=== PATIENT | male | born 1940 | race Caucasian/White ===

== ENCOUNTER 2021-09-24 07:22 | Outpatient (REF) | payer OTHER, SELFPAY ==
[2021-09-24 08:54] LABS: PSA,Total (Free>4and<10) 4.17 ng/mL (0.00-4.00)
[2021-09-27 11:21] LABS: Free Prostate Spec Ag 1.6 ng/mL; Percent Free Prostate Spec Ag 35 % (calc) (>25); Prostate Specific Ag Total 4.6 ng/mL (< OR = 4.0)
== END 2021-09-24 07:23 | disposition home or self-care (01) ==
LOC: HO.LAB 07:22
PROVIDERS: PCP Internal Medicine Geriatric Medicine; Visit Provider Urology
DX: Z12.5 Encounter for screening for malignant neoplasm of prostate (principal); R97.20 Elevated prostate specific antigen [PSA]
CPT/HCPCS: 36415; 84153; 84154

== ENCOUNTER → 2021-10-01 10:33 | Outpatient (BNVA) | payer OTHER, SELFPAY | PROVIDERS: PCP Internal Medicine Geriatric Medicine; Visit Provider Urology | DX: N40.1 Benign prostatic hyperplasia with lower urinary tract symptoms (principal); N13.8 Other obstructive and reflux uropathy; N21.0 Calculus in bladder; R97.20 Elevated prostate specific antigen [PSA] | CPT/HCPCS: 99212 ==

== ENCOUNTER → 2022-02-16 11:42 | Outpatient (BNVA) | payer OTHER, SELFPAY | PROVIDERS: PCP Internal Medicine Geriatric Medicine; Referring Provider Nurse Practitioner Family; Visit Provider Internal Medicine | DX: I71.4 Abdominal aortic aneurysm, without rupture (principal) | CPT/HCPCS: 93005; 99202 ==

== ENCOUNTER 2022-03-25 07:21 | Outpatient (REF) | payer OTHER, SELFPAY ==
[2022-03-25 09:13] LABS: PSA,Total (Free>4and<10) 4.51 ng/mL (0.00-4.00)
[2022-03-28 09:32] LABS: Free Prostate Spec Ag 2.1 ng/mL; Percent Free Prostate Spec Ag 40 % (calc) (>25); Prostate Specific Ag Total 5.3 ng/mL (< OR = 4.0)
== END 2022-03-25 07:22 | disposition home or self-care (01) ==
LOC: HO.LAB 07:21
PROVIDERS: PCP Internal Medicine Geriatric Medicine; Visit Provider Urology
DX: Z12.5 Encounter for screening for malignant neoplasm of prostate (principal); N40.1 Benign prostatic hyperplasia with lower urinary tract symptoms; N13.8 Other obstructive and reflux uropathy; R97.20 Elevated prostate specific antigen [PSA]
CPT/HCPCS: 36415; 84153; 84154

== ENCOUNTER → 2022-04-01 08:51 | Outpatient (BNVA) | payer OTHER, SELFPAY | PROVIDERS: Visit Provider Urology | DX: R97.20 Elevated prostate specific antigen [PSA] (principal); N40.1 Benign prostatic hyperplasia with lower urinary tract symptoms; N13.8 Other obstructive and reflux uropathy; N21.0 Calculus in bladder | CPT/HCPCS: Q3014 ==

== ENCOUNTER 2022-05-26 07:34 | Outpatient (REF) | payer OTHER, SELFPAY ==
--- NOTE | ~2022-05-26 | US_ITS ---
EXAMINATION: US RETROPERITONEAL LIMITED (AORTA) CLINICAL INFORMATION: Abdominal aortic aneurysm, without rupture. COMPARISON: None TECHNIQUE: Sinclair-scale, color Doppler and spectral Doppler evaluation of the abdominal aorta. FINDINGS: There is atherosclerotic disease. The measurements of the aorta in maximum AP and transverse dimensions respectively are as follows: Proximal: 2.7 x 3.4 cm. Mid: 2.8 x 3.2 cm. Distal: 3.3 x 3.5 cm. PSV: 37.0 cm/s. The measurements of the common iliac arteries in maximum AP and TRV dimensions are as follows: Right Common Iliac Artery: 1.3 x 1.3 cm. Left Common Iliac Artery: 1.2 x 1.2 cm. US/US abdominal aortic aneurysm IMPRESSION: Infrarenal abdominal aortic aneurysm measuring 3.5 cm.
--- NOTE | 2022-05-26 08:34 | CA_ITS ---
Transthoracic Echocardiogram Patient (Last, First, Middle): Hal Archer, Gender: Male Date of : 1940 Age: 81 Procedure Date: 05/26/2022 Procedure Type: Transthoracic Echocardiogram Location: OP Height: 172.72 cm Weight: 68.95 kg BSA: 1.82 m2 Heart Rate: 71 bpm BP: 135 / 75 mmHg Anthropometrist: KRISTA Tee MD: José Huynh MD Signal Worker Helper: Anshul Proctor MD Symptoms: I42.9 - Cardiomyopathy, unspecified Study Quality: Poor/Contrast ECG Rhythm: Sinus Conclusions: - 1. Technically limited study despite use of contrast agent 2. Mildly reduced LV systolic function with LVEF of 45-50% 3. Limited visualization of cardiac valves with cardiac valvular Doppler within normal limits Findings Procedure Information Contrast agent, definity, is being given per protocol without apparent complications. Left Ventricle Normal left ventricular cavity size. There is normal left ventricular wall thickness. The left ventricular systolic function is mildly decreased. The visually estimated ejection fraction is between 45-50%. Spectral Doppler is indicative of an impaired relaxation filling pattern. E/E prime ratio is between 8 and 15 consistent with indeterminate filling pressures. Right Ventricle Normal right ventricular cavity size. There is mild to moderately decreased right ventricular systolic function. Atria The left atrium is normal in size. Interatrial shunt cannot be excluded. The right atrium was not well visualized. Aortic Valve The aortic valve was not well visualized. There is no aortic valve stenosis. There is no aortic valve regurgitation. Mitral Valve Likely normal mitral valve structure and function. There is trace mitral valve regurgitation. There is no mitral valve stenosis. Pulmonic Valve The pulmonic valve was not well visualized. Tricuspid Valve The tricuspid valve was not well visualized. Tricuspid regurgitation envelope is inadequate for calculation of right ventricular systolic pressure. Great Vessels The aorta was not well visualized. The pulmonary artery was not well visualized. Venous The inferior vena cava was not well visualized. Pericardium/Pleural The pericardium was not well visualized. Prior Study Comparison No prior study available for comparison. Measurements 2D Linear Measurements IVSd: 0.80 0.6-0.9/0.6-1.0 cm LVIDd: 3.91 3.9-5.3/4.2-5.9 cm LVIDd Index: 2.15 2.4-3.2/2.2-3.1 cm/m2 LVIDs: 2.53 2.0-3.6 cm LVPWd: 0.90 0.7-1.1 cm LA Diam: 3.50 2.7-3.8/3.0-4.0 cm LAIDs Index: 1.92 1.5-2.3 cm/m2 LV Mass: 121.26 67-162/88-224 g LV Mass Index: 66.62 43-95/49-115 g/m2 LVOT Diam: 2.10 3.0+(-)1.3 cm 2D Systolic Function EF 4C: 39.90 >55% EF 2C: 53.70 >55% EF BiP: 46.10 >55% Mitral Valve MV Pk E: 0.62 MV PK A: 0.90 MV Decel Time: 322.00 E/A: 0.70 E'Lateral: 7.23 E'Medial: 6.01 E/E' Med: 10.30 E/E' Lat: 8.60 PHT: 94.00 MVA PHT: 2.34 Decel Lea: 1.93 Aortic Valve AoV Pk Tushar: 1.44 AoV Mn Tushar: 1.04 AoV VTI: 0.32 AoV Pk Grad: 8.00 Aov Mn Grad: 5.00 CORINA Cont.VTI: 1.53 LVOT LVOT Pk Tushar: 0.60 LVOT Mn Tushar: 0.44 LVOT VTI: 0.14 LVOT Pk Grad: 1.00 LVOT Mn Grad: 1.00 LVOT Diam: 2.10 LVOT Area: 3.46 Diastolic Function MV Pk E: 0.62 MV Pk A: 0.90 E/A: 0.70 E'Medial: 6.01 E/E' Med: 10.30 E' Laterial: 7.23 E/E' Lat: 8.60 Right Ventricle TAPSE (mm): 14.30 TVS' Tushar: 9.02 Tricuspid Valve TR Pk Tushar: 2.01 TR Pk Grad: 16.00 Great Vessels Aorta Sinus of Valsalva: 3.80 2.0-3.5 cm Ao Asc: 3.60 2.1-3.4 cm Pulmonary Valve PV Pk Tushar: 0.97 Peak PV Grad: 4.00 Updated in Other Vendor System with Status of Final Anshul Proctor MD electronically signed on 05/27/2022 2:46:22 PM with status of Final
== END 2022-05-26 07:35 | disposition home or self-care (01) ==
LOC: HO.US 07:34
PROVIDERS: Visit Provider Internal Medicine
DX: I71.40 Abdominal aortic aneurysm, without rupture, unspecified (principal)
CPT/HCPCS: 76706; 93306; Q9957

== ENCOUNTER → 2022-06-08 09:58 | Outpatient (BNVA) | payer OTHER, SELFPAY | PROVIDERS: PCP Internal Medicine Geriatric Medicine; Visit Provider Internal Medicine | DX: I74.10 Embolism and thrombosis of unspecified parts of aorta (principal); I42.9 Cardiomyopathy, unspecified | CPT/HCPCS: 99212 ==

== ENCOUNTER 2022-06-28 07:24 | Outpatient (REF) | payer OTHER, SELFPAY ==
[2022-06-28 07:29] LABS: MANUAL DIFF FLAG NO
[2022-06-28 08:04] LABS: Basophils Percent Auto 0.6 % (0-2); Eosinophils Absolute Auto 0.1 X10*3/uL (0.0-0.4); Eosinophils Percent Auto 1.4 % (0-4); Hematocrit 48.6 % (42.0-52.0); Hemoglobin 16.5 g/dl (14.0-18.0); Imm Gran Abs Auto 0.03 X10*3/uL (0.00-0.03); Imm Gran Pct Auto 0.4 % (0.0-0.4); Lymphocytes Absolute Auto 1.8 X10*3/uL (1.2-4.9); Lymphocytes Percent Auto 25.2 % (20-40); Mean Corpuscular Hemoglobin 28.2 pg (27.0-33.0); Mean Corpuscular Volume 83.1 fL (80.0-98.0); Mean Platelet Volume 10.3 fL (9.4-12.4); Monocytes Absolute Auto 0.6 X10*3/uL (0.1-1.2); Monocytes Percent Auto 8.5 % (2-11); Neutrophils Absolute Auto 4.6 x10*3/uL (2.0-8.3); Neutrophils Percent Auto 63.9 % (45-73); Platelet Count 185 X10*3/uL (160-400); Red Blood Count 5.85 X10*6/uL (4.60-5.80); Red Cell Distribution Width 12.7 % (11.0-16.0); White Blood Count 7.1 X10*3/uL (4.8-10.8)
[2022-06-28 08:42] LABS: Alanine Aminotransferase 20 U/L (0-40); Albumin Level 4.4 g/dL (3.5-5.0); Alkaline Phosphatase 65 U/L (39-117); Anion Gap 14 (12-20); Aspartate Amino Transferase 18 U/L (5-37); Blood Urea Nitrogen 16 mg/dL (9-16); Calcium 9.5 mg/dL (8.4-10.2); Carbon Dioxide 29 mmol/L (22-29); Chloride 101 mmol/L (96-108); Cholesterol 190 mg/dL; Estimated Glomerular Filt Rate > 60; Glucose Random 150 mg/dL (60-115); HDL Cholesterol 40 mg/dL; LDL Cholesterol Calculated 132 mg/dl; Potassium 4.2 mmol/L (3.3-5.1); Sodium 140 mmol/L (135-145); Triglycerides 94 mg/dL
== END 2022-06-28 07:25 | disposition home or self-care (01) ==
LOC: HO.LAB 07:24
PROVIDERS: PCP Internal Medicine Geriatric Medicine; Visit Provider Internal Medicine Geriatric Medicine
DX: I10 Essential (primary) hypertension (principal); Z13.220 Encounter for screening for lipoid disorders
CPT/HCPCS: 36415; 80053; 80061; 85025

== ENCOUNTER 2022-11-02 07:11 | Outpatient (REF) | payer OTHER, SELFPAY ==
[2022-11-02 07:52] LABS: Estimated Average Glucose 143 mg/dL; Hemoglobin A1c % 6.6 %
== END 2022-11-02 07:12 | disposition home or self-care (01) ==
LOC: HO.LAB 07:11
PROVIDERS: PCP Internal Medicine Geriatric Medicine; Visit Provider Internal Medicine Geriatric Medicine
DX: R73.9 Hyperglycemia, unspecified (principal)
CPT/HCPCS: 36415; 83036

== ENCOUNTER 2023-03-24 08:00 | Outpatient (REF) | payer OTHER, SELFPAY ==
[2023-03-24 10:22] LABS: PSA,Total (Free>4and<10) 6.05 ng/mL (0.00-4.00)
[2023-03-27 10:58] LABS: Free Prostate Spec Ag 1.4 ng/mL; Percent Free Prostate Spec Ag 22 % (calc) (>25); Prostate Specific Ag Total 6.3 ng/mL (< OR = 4.0)
== END 2023-03-24 08:01 | disposition home or self-care (01) ==
LOC: HO.LAB 08:00
PROVIDERS: Visit Provider Urology
DX: Z12.5 Encounter for screening for malignant neoplasm of prostate (principal); R97.20 Elevated prostate specific antigen [PSA]
CPT/HCPCS: 36415; 84153; 84154

== ENCOUNTER 2023-03-31 10:07 | Outpatient (AMB) | payer OTHER, SELFPAY ==
--- NOTE | 2023-03-31 11:11 | MHC.OFFVIS ---
Intake Intake Visit Reasons: 1Y PSA(set) Intake Note: Patient is Present for Follow Up Urology Medication: Antibiotic Allergies: Cipro, Penicillin Blood Thinners: None Pharmacy: [facility] PVR: 80ml Allergies ciprofloxacin [CIPROFLOXACIN] Allergy (Intermediate, Verified 03/31/23 11:13) ITCHING Penicillins [PENICILLINS] Allergy (Unknown, Verified 03/31/23 11:13) UNKNOWN From PERCOCET Adverse Reaction (Intermediate, Uncoded 03/31/23 11:13) AGITATION/VOMITING HPI HPI Comments History of Present Illness Details Hal is a pleasant male. He is a patient of Dr Dow. He is seen for the following urologic conditions. - Bladder stone - lower urinary tract symptoms Discussed with daughter Slight elevation in PSA Free% remains high Continue to follow Lower Urinary Tract Symptoms:? Prior prostate procedures Prior elevated and variable PSA Current visit is for?further evaluation of, lower urinary tract symptoms, predominate obstructive symptoms.? Current treatment includes?medication, 5-AR.? Prior treatments include?2009 , TURP ?03/13 laser procedure for bladder stones - BPH tissue ?06/15 UTI ?11/13 Bladder stone removed.? Prostate Symptom Score?06/16 , Mild (0-8), Bother 2.? Symptoms include?incomplete emptying, weak stream, nocturia (>2), and are improving ?06/16 , incomplete emptying, nocturia (>2), and are stable.? Results from testing include? cystoscopy ? 09/13 TURP defect from procedure 2009, bladder stones recurrent ? renal/bladder us ? 06/15 6 mm left kidney stone. Asymptomatic. 90 mg prostate per management. PVR 125. 06/16 Bilateral small renal stones. Enlarged prosatte capsule ? Prior Prostate Score?moderate.? PSA?07/15 - 6.2 free 30% ?01/12 6.6 30%, 06/16 3.9, 12/14 4.7, 07/18 PSA 7.4,?01/15 4.8, 09/17 4.2 35%, 03/19 4.5 40%, 03/20 6.3 F22% ? Prostate volume?30-50gm.? Testing at next visit will include?Prostate Symptom Score, bladder scan.? Treatment plan?12 months PSA PFSH Medical History AAA (abdominal aortic aneurysm) without rupture Elevated prostate specific antigen [PSA] Surgical History No pertinent past surgical history Family History Father No problems noted. Mother No problems noted. Social History Patient Tobacco Use Status: Never used Tobacco Review of Systems Const Denies chills and Denies fever(s) Card Reports no additional complaints and Denies syncope Resp Denies cough GI Denies abdominal pain and Denies heartburn Reports as per HPI and Denies change in libido Neuro Denies syncope Psych Denies change in libido Endo Denies change in libido Physical Exam Const General: cooperative, healthy appearing, comfortable and no acute distress Orientation/consciousness: patient oriented x3 HEENT Face and sinus: Yes normal facial exam Mouth: moist mucous membranes Neck Neck: Yes normal visual inspection, Yes full ROM and Yes trachea midline Chest Chest palpation & inspection: normal inspection of the chest Resp Effort & Inspection: normal respiratory effort, able to speak in complete sentences and no respiratory distress GI Inspection: Yes normal to inspection Back/Spine/Pelvis Cervical Spine: normal cervical lordosis Thoracic/Lumbar Spine: thoracic and lumbar spine normal to inspection Skin General skin exam: no rashes or lesions noted Neuro General: patient oriented x3, gait normal, tone normal and moves all extremities Extrem General: Yes normal to inspection and Yes capillary refill normal Office Procedures Post Void Residual Post Residual Void Post Void Residual (PVR): 80 [id number] Void Residual by ultrasound Results AMB Urinalysis, Automated UA Leukoctes 0 Darrian/uL Last Edit by EARNEST Byrnes on 03/31/23 11:22 UA Nitrite Negative Last Edit by Stefanie Chavez, A on 03/31/23 11:22 UA Urobilinogen 0.2 mg/dL Last Edit by Stefanie Chavez, A on 03/31/23 11:22 UA Protein 30 mg/dL Last Edit by Stefanie Chavez, A on 03/31/23 11:22 UA pH 5.0 Last Edit by Stefanie Chavez, A on 03/31/23 11:22 UA Blood 0 Bladimir/uL Last Edit by Stefanie Chavez, RMA on 03/31/23 11:22 UA Specific [place] 1.025 Last Edit by Stefanie Chavez, A on 03/31/23 11:22 UA Ketone Negative Last Edit by Stefanie Chavez, A on 03/31/23 11:22 UA Bilirubin 0 mg/dL Last Edit by Stefanie Chavez, A on 03/31/23 11:22 UA Glucose 0 mg/dL Last Edit by Stefanie Chavez, A on 03/31/23 11:22 Results Reviewed Results Reviewed: Laboratory Last Values Urine pH (Auto) 5.0 03/31/23 11:14 Specific [place] (Auto) 1.025 03/31/23 11:14 Urine Protein (Auto) 30 mg/dL 03/31/23 11:14 Glucose (UA)(Auto) 0 mg/dL 03/31/23 11:14 Urine Ketones (Auto) Negative 03/31/23 11:14 Urine Blood (Auto) 0 Bladimir/uL 03/31/23 11:14 Urine Nitrite (Auto) Negative 03/31/23 11:14 Urine Bilirubin (Auto) 0 mg/dL 03/31/23 11:14 Urine Urobilinogen (Auto) 0.2 mg/dL 03/31/23 11:14 Leukocyte Esterase (Auto) 0 Darrian/uL 03/31/23 11:14 Assessment & Plan Assessment & Plan (1) Bladder stones: Code(s): N21.0 - Calculus in bladder (2) BPH w urinary obs/LUTS: Code(s): N40.1 - Benign prostatic hyperplasia with lower urinary tract symptoms; N13.8 - Other obstructive and reflux uropathy (3) Elevated prostate specific antigen [PSA]: Code(s): R97.20 - Elevated prostate specific antigen [PSA] Plan Twelve month follow-up PSA Orders: Orders AMB Post Void Residual by ultrasound 03/31/23 N40.1 - Benign prostatic hyperplasia with lower urinary tract symptoms, N13.8 - Other obstructive and reflux uropathy PSA,Total (Free>4and<10) 364 Days R97.20 - Elevated prostate specific antigen [PSA] AMB Urinalysis Automated 03/31/23 Z13.9 - Encounter for screening, unspecified Patient Instructions: Imaging studies, laboratory and physical exam results were discussed and reviewed in detail. No major barriers to patient understanding were identified. An opportunity to ask questions regarding the treatment plan was provided. All questions were answered. The patient expressed understanding and agreement with the above treatment plan. The patient is aware they should contact our office by phone for worsening of their current condition or the appearance of new urologic symptoms. Compliance is encouraged with any medications and followup testing that is ordered. It is a privilege to participate in the urologic care of your patient. If you have any questions or concerns regarding treatment for the above conditions, or other urologic issues, please do not hesitate to contact me. The office telephone contact is [phone]. This note is constructed using voice recognition software. While every effort has been made to ensure accuracy veterinary hospital shift lead errors may have been included. Yours sincerely, Dr Blaze Marie MD, [facility] - Urology Providers of Expert, Compassionate Care for the Genitourinary System Coding Level of Care Code Est Pt Level 3 (63475) Diagnoses Bladder stones N21.0 BPH w urinary obs/LUTS N40.1; N13.8 Elevated prostate specific antigen [PSA] R97.20 CPT Codes Post Residual Void - PVR CPT Code: 09891-[id number] Void Residual by ultrasound ([id number])
== END 2023-03-31 11:55 | disposition home or self-care (01) ==
PROVIDERS: Visit Provider Urology
DX: N21.0 Calculus in bladder (principal); N40.1 Benign prostatic hyperplasia with lower urinary tract symptoms; N13.8 Other obstructive and reflux uropathy; R97.20 Elevated prostate specific antigen [PSA]
CPT/HCPCS: 99213

== ENCOUNTER → 2023-03-31 10:07 | Outpatient (BNVA) | payer OTHER, SELFPAY | PROVIDERS: Visit Provider Urology | DX: N21.0 Calculus in bladder (principal); N40.1 Benign prostatic hyperplasia with lower urinary tract symptoms; N13.8 Other obstructive and reflux uropathy; R97.20 Elevated prostate specific antigen [PSA] | CPT/HCPCS: 51798; 81003; 99212 ==

== ENCOUNTER 2023-05-19 07:54 | Outpatient (REF) | payer OTHER, SELFPAY ==
--- NOTE | ~2023-05-19 | US_ITS ---
EXAMINATION: US RETROPERITONEAL LIMITED (AORTA) CLINICAL INFORMATION: Abdominal aortic aneurysm without rupture, unspecified. COMPARISON: Ultrasound aorta 05/26/2022. TECHNIQUE: Sinclair-scale, color Doppler and spectral Doppler evaluation of the abdominal aorta. FINDINGS: The measurements of the aorta in maximum AP and transverse dimensions respectively are as follows: Proximal: 2.2 x 2.6 cm, previously 2.7 x 3.4 cm. Mid: 2.2 x 2.2 cm, previously 2.8 x 2.2 cm. Distal: 3.3 x 3.1 cm, previously 3.3 x 3.5 cm. PSV: 30.0 cm/s. The measurements of the common iliac arteries in maximum AP and TRV dimensions are as follows: Right Common Iliac Artery: 1.8 x 1.7 cm, previously 1.3 x 1.3 cm. Left Common Iliac Artery: 1.7 x 1.9 cm, previously 1.2 x 1.2 cm. US/US abdominal aortic aneurysm IMPRESSION: 1. Stable infrarenal abdominal aortic aneurysm measuring up to 3.3 cm. Follow-up ultrasound recommended in 3 year interval. 2. Mildly aneurysmal bilateral iliac arteries, new from prior.
== END 2023-05-19 07:55 | disposition home or self-care (01) ==
LOC: HO.US 07:54
PROVIDERS: PCP Internal Medicine Geriatric Medicine; Visit Provider Internal Medicine
DX: I71.40 Abdominal aortic aneurysm, without rupture, unspecified (principal); I42.9 Cardiomyopathy, unspecified
CPT/HCPCS: 76706

== ENCOUNTER → 2023-08-17 09:17 | Outpatient (REF) | payer OTHER, SELFPAY ==
--- NOTE | 2023-08-17 09:24 | CA_ITS ---
Transthoracic Echocardiogram Patient (Last, First, Middle): Hal Archer, Gender: Male Date of : 1940 Age: 82 Procedure Date: 08/17/2023 Procedure Type: Transthoracic Echocardiogram Location: OP Height: 160.02 cm Weight: 73.48 kg BSA: 1.77 m2 Heart Rate: bpm BP: 118 / 76 mmHg Hris Specialist: SHAWN Referring MD: José Huynh MD Symptoms: I42.9 - Cardiomyopathy, unspecified Study Quality: Adequate ECG Rhythm: Sinus Conclusions: - The left ventricular systolic function is mildly decreased. The calculated ejection fraction is 49% by biplane method. - There is moderate calcification of the aortic valve. Findings Left Ventricle Normal left ventricular cavity size. The left ventricular systolic function is mildly decreased. The calculated ejection fraction is 49% by biplane method. There is mild global hypokinesis. Evidence suggests grade I (mild) diastolic dysfunction. There is mild septal asymmetric hypertrophy. Possible basal inferior wall hypokinesis. LV peak GLS -15.3%. Right Ventricle Normal right ventricular cavity size and systolic function. Atria Both atria are normal in size. Aortic Valve There is moderate calcification of the aortic valve. There is no aortic valve stenosis. There is no aortic valve regurgitation. Mitral Valve The mitral valve appears normal. There is trace mitral valve regurgitation. There is no mitral valve stenosis. Pulmonic Valve The pulmonic valve is likely normal. Tricuspid Valve There is trace tricuspid valve regurgitation. There is no evidence of pulmonary hypertension. Great Vessels The asc aorta is normal in size. Venous The inferior vena cava was not well visualized. Pericardium/Pleural There is no evidence of pericardial effusion. Prior Study Comparison No significant change compared to prior study dated: 05/26/2022. Measurements 2D Linear Measurements IVSd: 1.10 0.6-0.9/0.6-1.0 cm LVIDd: 4.41 3.9-5.3/4.2-5.9 cm LVIDd Index: 2.49 2.4-3.2/2.2-3.1 cm/m2 LVIDs: 3.18 2.0-3.6 cm LVPWd: 0.89 0.7-1.1 cm LA Diam: 3.70 2.7-3.8/3.0-4.0 cm LAIDs Index: 2.09 1.5-2.3 cm/m2 LV Mass: 183.31 67-162/88-224 g LV Mass Index: 103.56 43-95/49-115 g/m2 LVOT Diam: 2.00 3.0+(-)1.3 cm 2D Systolic Function EF 4C: 50.40 >55% EF 2C: 49.00 >55% EF BiP: 49.20 >55% Mitral Valve MV Pk E: 0.76 MV PK A: 0.93 MV Decel Time: 187.00 E/A: 0.80 E'Lateral: 6.85 E'Medial: 5.55 E/E' Med: 13.70 E/E' Lat: 11.10 PHT: 55.00 MVA PHT: 4.00 Decel Ocean: 4.04 Aortic Valve AoV Pk Tushar: 1.36 AoV Mn Tushar: 0.95 AoV VTI: 0.32 AoV Pk Grad: 7.00 Aov Mn Grad: 4.00 CORINA Cont.VTI: 1.73 LVOT LVOT Pk Tushar: 0.78 LVOT Mn Tushar: 0.52 LVOT VTI: 0.18 LVOT Pk Grad: 2.00 LVOT Mn Grad: 1.00 LVOT Diam: 2.00 LVOT Area: 3.14 Diastolic Function MV Pk E: 0.76 MV Pk A: 0.93 E/A: 0.80 E'Medial: 5.55 E/E' Med: 13.70 E' Laterial: 6.85 E/E' Lat: 11.10 Right Ventricle TAPSE (mm): 20.00 TVS' Tushar: 12.40 Tricuspid Valve TR Pk Tushar: 1.93 TR Pk Grad: 15.00 Great Vessels Aorta Sinus of Valsalva: 3.80 2.0-3.[address] [place]: 2.98 1.7-3.4 cm Ao Asc: 3.60 2.1-3.4 cm Updated in Other Vendor System with Status of Final José Huynh MD electronically signed on 08/19/2023 11:32:15 AM with status of Final
== END ==
LOC: HO.CARD 09:17
PROVIDERS: PCP Internal Medicine Geriatric Medicine; Visit Provider Internal Medicine
DX: I42.9 Cardiomyopathy, unspecified (principal)
CPT/HCPCS: 93306; 93356

== ENCOUNTER → 2023-08-17 09:24 | Outpatient (BNV) | payer OTHER, SELFPAY | PROVIDERS: PCP Internal Medicine Geriatric Medicine; Visit Provider Internal Medicine | DX: I35.8 Other nonrheumatic aortic valve disorders (principal) | CPT/HCPCS: 93306; 93356 ==

== ENCOUNTER 2023-09-11 07:29 | Outpatient (REF) | payer OTHER, SELFPAY ==
[2023-09-11 07:37] LABS: MANUAL DIFF FLAG NO
[2023-09-11 08:32] LABS: Basophils Percent Auto 0.4 % (0-2); Eosinophils Absolute Auto 0.1 X10*3/uL (0.0-0.4); Eosinophils Percent Auto 1.9 % (0-4); Hematocrit 45.1 % (42.0-52.0); Hemoglobin 15.6 g/dl (14.0-18.0); Imm Gran Abs Auto 0.03 X10*3/uL (0.00-0.03); Imm Gran Pct Auto 0.4 % (0.0-0.4); Lymphocytes Absolute Auto 1.8 X10*3/uL (1.2-4.9); Lymphocytes Percent Auto 26.7 % (20-40); Mean Corpuscular HGB Conc 34.6 g/dl (31.0-36.0); Mean Corpuscular Hemoglobin 29.3 pg (27.0-33.0); Mean Corpuscular Volume 84.8 fL (80.0-98.0); Mean Platelet Volume 10.7 fL (9.4-12.4); Monocytes Absolute Auto 0.7 X10*3/uL (0.1-1.2); Monocytes Percent Auto 9.9 % (2-11); Neutrophils Absolute Auto 4.2 x10*3/uL (2.0-8.3); Neutrophils Percent Auto 60.7 % (45-73); Platelet Count 187 X10*3/uL (160-400); Red Blood Count 5.32 X10*6/uL (4.60-5.80); White Blood Count 6.9 X10*3/uL (4.8-10.8)
[2023-09-11 08:58] LABS: Alanine Aminotransferase 25 U/L (0-40); Albumin Level 4.4 g/dL (3.5-5.0); Alkaline Phosphatase 64 U/L (39-117); Anion Gap 13 (12-20); Aspartate Amino Transferase 18 U/L (5-37); Bilirubin Total 0.8 mg/dL (0.0-1.0); Blood Urea Nitrogen 17 mg/dL (9-16); Calcium 9.4 mg/dL (8.4-10.2); Carbon Dioxide 28 mmol/L (22-29); Chloride 103 mmol/L (96-108); Cholesterol 174 mg/dL (<200); Estimated Glomerular Filt Rate > 60; Glucose Random 146 mg/dL (60-115); HDL Cholesterol 40 mg/dL (>40); LDL Cholesterol Calculated 121 mg/dL (<100); Sodium 140 mmol/L (135-145); Total Protein 7.2 g/dL (6.5-8.0); Triglycerides 68 mg/dL (<150)
[2023-09-11 09:14] LABS: Creatinine Urine 190.58 mg/dL; Microalbum/Creatinine Ratio Ur 123.3 ug/mg cr (<30)
== END 2023-09-11 07:30 | disposition home or self-care (01) ==
LOC: HO.LAB 07:29
PROVIDERS: PCP Internal Medicine Geriatric Medicine; Visit Provider Internal Medicine Geriatric Medicine
DX: I10 Essential (primary) hypertension (principal); R73.02 Impaired glucose tolerance (oral)
CPT/HCPCS: 36415; 80053; 80061; 82043; 82570; 85025

== ENCOUNTER 2024-03-27 07:24 | Outpatient (REF) | payer OTHER, SELFPAY ==
[2024-03-27 08:21] LABS: Anion Gap 12 (12-20); Blood Urea Nitrogen 17 mg/dL (9-16); Calcium 8.8 mg/dL (8.4-10.2); Carbon Dioxide 29 mmol/L (22-29); Chloride 102 mmol/L (96-108); Estimated Glomerular Filt Rate > 60; Glucose Random 141 mg/dL (60-115); Potassium 4.4 mmol/L (3.3-5.1); Sodium 139 mmol/L (135-145)
[2024-03-27 08:47] LABS: PSA,Total (Free>4and<10) 6.92 ng/mL (0.00-4.00)
[2024-03-27 10:01] LABS: Estimated Average Glucose 137 mg/dL; Hemoglobin A1C 187.4999 umol/L; Hemoglobin A1c % 6.4 % (<6.0); Total Hemoglobin (HGBA1C) 4062.2608 umol/L
[2024-03-29 12:24] LABS: Free Prostate Spec Ag 2.1 ng/mL; Percent Free Prostate Spec Ag 31 % (calc) (>25); Prostate Specific Ag Total 6.7 ng/mL (< OR = 4.0)
== END 2024-03-27 07:25 | disposition home or self-care (01) ==
LOC: HO.LAB 07:24
PROVIDERS: Absent Provider Internal Medicine Geriatric Medicine; PCP Internal Medicine Geriatric Medicine; Visit Provider Urology
DX: I10 Essential (primary) hypertension (principal); R73.02 Impaired glucose tolerance (oral); Z12.5 Encounter for screening for malignant neoplasm of prostate; R97.20 Elevated prostate specific antigen [PSA]
CPT/HCPCS: 36415; 80048; 83036; 84153; 84154

== ENCOUNTER 2024-04-02 08:07 | Outpatient (AMB) | payer OTHER, SELFPAY ==
--- NOTE | 2024-04-02 08:11 | A.OFFVIS_ITS ---
Intake Visit Reasons: 1Y PSA/PVR(set)Free/total Intake Note: Patient is Present for PVR/PSA Urology Med:None Antibiotic Allergy: Cipro, Penicillins Blood Thinner:None Last PVR: 80 Todays PVR: PSA: 03/27/24- TOTAL PSA 6.7 FREE PSA: 2.1 %FREE- 31 Varnish Inspector: Varnish Inspector Present Accompanied by: Spouse Allergies ciprofloxacin [CIPROFLOXACIN] Allergy (Intermediate, Verified 04/02/24 08:16) ITCHING Penicillins [PENICILLINS] Allergy (Unknown, Verified 04/02/24 08:16) UNKNOWN From PERCOCET Adverse Reaction (Intermediate, Uncoded 04/02/24 08:16) AGITATION/VOMITING HPI Comments Details: Hal is a pleasant male. He is a patient of Dr Dow. He is seen for the following urologic conditions. - Bladder stone - lower urinary tract symptoms Yearly follow-up Translation by PSA trending upward Slow movement High free percentage PVR 40 cc Check PSA in 6 months to ensure stability Lower Urinary Tract Symptoms:? Prior prostate procedures Prior elevated and variable PSA Current visit is for?further evaluation of, lower urinary tract symptoms, predominate obstructive symptoms.? Current treatment includes?medication, 5-AR.? Prior treatments include?2009 , TURP ?03/13 laser procedure for bladder stones - BPH tissue ?06/15 UTI ?11/13 Bladder stone removed.? Prostate Symptom Score?06/16 , Mild (0-8), Bother 2.? Symptoms include?incomplete emptying, weak stream, nocturia (>2), and are improving ?06/16 , incomplete emptying, nocturia (>2), and are stable.? Results from testing include? cystoscopy ? 09/13 TURP defect from procedure 2009, bladder stones recurrent ? renal/bladder us ? 06/15 6 mm left kidney stone. Asymptomatic. 90 mg prostate per management. PVR 125. 06/16 Bilateral small renal stones. Enlarged prosatte capsule ? Prior Prostate Score?moderate.? PSA?07/15 - 6.2 free 30% ?01/12 6.6 30%, 06/16 3.9, 12/14 4.7, 07/18 PSA 7.4,?01/15 4.8, 09/17 4.2 35%, 03/19 4.5 40%, 03/20 6.3 F22%, 03/21 6.7 31% ? Prostate volume?30-50gm.? Testing at next visit will include?Prostate Symptom Score, bladder scan.? Treatment plan?12 months PSA [facility] Medical History AAA (abdominal aortic aneurysm) without rupture Elevated prostate specific antigen [PSA] Surgical History No pertinent past surgical history Family History Father No problems noted. Mother No problems noted. Social History Patient Tobacco Use Status: Never used Tobacco Review of Systems Const Denies chills and Denies fever(s) Card Reports no additional complaints and Denies syncope Resp Denies cough GI Denies abdominal pain and Denies heartburn Reports as per HPI and Denies change in libido Neuro Denies syncope Psych Denies change in libido Endo Denies change in libido Physical Exam Const General: cooperative, healthy appearing, comfortable and no acute distress Orientation/consciousness: patient oriented x3 HEENT Face and sinus: Yes normal facial exam Mouth: moist mucous membranes Neck Neck: Yes normal visual inspection, Yes full ROM and Yes trachea midline Chest Chest palpation & inspection: normal inspection of the chest Resp Effort & Inspection: normal respiratory effort, able to speak in complete sentences and no respiratory distress GI Inspection: Yes normal to inspection Back/Spine/Pelvis Cervical Spine: normal cervical lordosis Thoracic/Lumbar Spine: thoracic and lumbar spine normal to inspection Skin General skin exam: no rashes or lesions noted Neuro General: patient oriented x3, gait normal, tone normal and moves all extremities Extrem General: Yes normal to inspection and Yes capillary refill normal Assessment & Plan Assessment & Plan (1) BPH w urinary obs/LUTS: Code(s): N40.1 - Benign prostatic hyperplasia with lower urinary tract symptoms; N13.8 - Other obstructive and reflux uropathy Category: Medical (2) Elevated prostate specific antigen [PSA]: Code(s): R97.20 - Elevated prostate specific antigen [PSA] Category: Medical Plan Six-month follow-up PSA Orders: Orders AMB Post Void Residual by ultrasound Today N13.8 - Other obstructive and reflux uropathy, N40.1 - Benign prostatic hyperplasia with lower urinary tract symptoms PSA,Total (Free>4and<10) 6 Months R97.20 - Elevated prostate specific antigen [PSA] Patient Instructions: Imaging studies, laboratory and physical exam results were discussed and reviewed in detail. No major barriers to patient understanding were identified. An opportunity to ask questions regarding the treatment plan was provided. All questions were answered. The patient expressed understanding and agreement with the above treatment plan. The patient is aware they should contact our office by phone for worsening of their current condition or the appearance of new urologic symptoms. Compliance is encouraged with any medications and followup testing that is ordered. It is a privilege to participate in the urologic care of your patient. If you have any questions or concerns regarding treatment for the above conditions, or other urologic issues, please do not hesitate to contact me. The office telephone contact is [phone]. This note is constructed using voice recognition software. While every effort has been made to ensure accuracy resource conservation specialist errors may have been included. Yours sincerely, Dr Blaze Marie MD, [facility] - Urology Providers of Expert, Compassionate Care for the Genitourinary System Coding Level of Care Code Est Pt Level 4 (04995) Diagnoses BPH w urinary obs/LUTS N40.1; N13.8 Elevated prostate specific antigen [PSA] R97.20
== END 2024-04-02 08:36 | disposition home or self-care (01) ==
PROVIDERS: PCP Internal Medicine Geriatric Medicine; Visit Provider Urology
DX: N40.1 Benign prostatic hyperplasia with lower urinary tract symptoms (principal); N13.8 Other obstructive and reflux uropathy; R97.20 Elevated prostate specific antigen [PSA]
CPT/HCPCS: 99214

== ENCOUNTER → 2024-04-02 08:07 | Outpatient (BNVA) | payer OTHER, SELFPAY | PROVIDERS: PCP Internal Medicine Geriatric Medicine; Visit Provider Urology | DX: N40.1 Benign prostatic hyperplasia with lower urinary tract symptoms (principal); N13.8 Other obstructive and reflux uropathy; N21.0 Calculus in bladder; R97.20 Elevated prostate specific antigen [PSA] | CPT/HCPCS: 99212 ==

== ENCOUNTER 2024-09-16 07:30 | Outpatient (REF) | payer OTHER, SELFPAY ==
--- OUTSIDE RECORDS SUMMARY | 2024-09-16 07:33 | XMS_ITS | Clinical Summary ---
Author Organization [employer] Address [address] [facility] 7[address] [place] [address] Care Team Providers Care Relocation Director Name Role Phone NameYovani MD Primary Care Provider [phone] Allergies Active Allergy Reactions Criticality Noted Date Comments Penicillin G 04/07/2016 Penicillins Unknown 09/04/2024 Tramadol 04/07/2016 Medications omeprazole (PriLOSEC) [address] capsule TAKE 1 CAPSULE BY MOUTH EVERY DAY 90 capsule 1 04/17/2023 Active amLODIPine (Norvasc) 5 MG tabletIndication s:Hypertension, unspecified type,Impaired glucose tolerance Take 1 tablet (5 mg) by mouth Once per day. 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 Asthma 05/15/2012 Benign prostatic hyperplasia 05/15/2012 Gastroesophageal reflux disease 05/15/2012 Impaired glucose tolerance 05/15/2012 Encounters Date Type Department Care Team Description 09/04/2024 9:30 AM EDT Office Visit [facility] [address] [place] [address] NameYovani MD Hypertension, unspecified type (Primary Dx); Impaired glucose tolerance; Benign prostatic hyperplasia (BPH) with straining on urination 09/04/2024 Travel from Last 3 Months Immunizations Name Administration Dates Next Due Influenza injectable quadrivalent preservative f ree 03/04/2015 Influenza, IIV3, injectable 05/12/2014, 1 Influenza, Split (incl. purified surface antigen ) 03/15/2013,05/15/2012 Pneumococcal Conjugate PCV 13 05/12/2014 Pneumococcal Polysaccharide PPSV23 12/17/2002 TD (adult), 2 Lf tetanus tox oid, preservative free, adsorbed 05/11/2017,07/12/2002 Social History Tobacco Use Types Packs/Day Years Used Date Smoking Tobacco: Never Passive Smoke Exposure: Never Smokeless Tobacco: Never Tobacco Cessation:Counseling Given: Not Answered Alcohol Use Standard Drinks/Week Comments Never 0 (1 standard drink = 0.6 oz pur e alcohol) Depression Answer Date Recorded Patient Health Questionnaire-9 Score 0 09/04/2024 Patient Health Questionnaire-9 Score 0 09/04/2024 Last PHQ-9: Questionnaire Data Not on file 0 09/04/2024 Housing Stability Answer Date Recorded What is your housing situation today? I have julianne blackburn 09/06/[address] you li ve. Do you have problems with any of the following? None of the above 09/06/2023 Food Insecurity Answer Date Recorded Within the past 12 months, y ou worried that your food would run out before you got money to buy more: Never True 09/06/2023 Within the past 12 months,th e food you bought just didn't last and you didn't have enough money to get more: Never True 02/2024 Transportation Answer Date Recorded In the past 12 months, has l ack of transportation kept you from medical appts, meetings, work or from getting things needed for daily living? No 09/06/2023 Utilities Answer Date Recorded In the past 12 months, has t he electric, gas, oil or water company threatened to shut off services in your home? No 09/06/2023 Depression Answer Date Recorded Patient Health Questionnaire-2 Score 0 09/04/2024 Internet Access Answer Date Recorded Internet Access Q1 No 09/04/2024 Internet Access Q2 I do not want or need it 01/2025 Sex and Gender Information Value Date Recorded Sex Assigned at Male 03/28/2022 10:14 AM EDT Legal Sex Male 10:14 AM EDT Gender Identity Male 03/28/2022 10:14 AM EDT Sexual Orientation Straight 03/28/2022 10 :14 AM EDT Last Filed Vital Signs Vital Sign Reading Time Taken Comments Blood Pressure 129/89 09/04/2024 9:43 AM EDT Pulse 68 09/04/2024 9:17 AM EDT Temperature 36.6 ??C (97.8 ??F) 09/04/2024 9:17 AM ED T Respiratory Rate 18 09/04/2024 9:17 AM EDT Oxygen Saturation 98% 09/04/2024 9:17 AM EDT Inhaled Oxygen Concentration - - Weight 73.5 kg (162 lb) 09/04/2024 9:17 AM EDT Height 172.7 cm (5' 8 ) 09/04/2024 9:17 AM EDT Body Mass Index 24.63 09/04/2024 9:17 AM EDT Plan of Treatment Health Maintenance Due Date Last Done Comments Zoster Vaccines (1 of 2) 1990 RSV Patients and Patients Aged 60 years or older (1 - 1-dose 75+ series) 12/31/2015 DTaP/Tdap/Td Vaccines (1 - Tdap) 05/12/2017 05/11/2017, 07/12/2002 Pneumococcal Vaccine: 50+ Years (3 of 3 - PCV20 or PCV21) 05/12/2019 05/12/2014, 12/17/2002 COVID-19 Vaccine ( - season) 2024 10/05/2021, 08/25/2020, 07/28/2020 Influenza Vaccine (#1) 2024 5, 05/12/2014, 03/15/2013, Additional history exists Diabetes: Hemoglobin A1C 03/27/202503/27/2 024, 09/06/2023, 11/02/2022, Additional history exists Alcohol/Substance Use Screening 04/03/2025 04/03/2024 Depression Screening 09/04/2025 09/04/2024, 09/05/19 25 SDOH Screening 09/04/2025 09/04/2024 Tobacco Screening 09/04/2025 09/04/2024 Lipid Panel 09/10/2028 09/11/2023, /3 05/2022, 12/23/2021 HIB Vaccines Aged Out No longer eligi ble based on patient's age to complete this topic HPV Vaccines Aged Out No longer eligi ble based on patient's age to complete this topic Hepatitis A Vaccines Aged Out No long er eligible based on patient's age to complete this topic Hepatitis B Vaccines Aged Out No long er eligible based on patient's age to complete this topic IPV Vaccines Aged Out No longer eligi ble based on patient's age to complete this topic Meningococcal Vaccine Aged Out No alejandra nicola eligible based on patient's age to complete this topic RSV under 20 months Aged Out No longe r eligible based on patient's age to complete this topic Rotavirus Vaccines Aged Out No longer eligible based on patient's age to complete this topic Procedures Procedure Name Priority Date/Time Associated Diagnosis Comments HEMOGLOBIN A1C Routine 03/27/2024 7:38 AM EDT Hypertension, unspecified type Impaired glucose tolerance LIPID PANEL, STANDARD Routine 09/11/2023 7:30 AM EDT Hypertension, unspecified type Impaired glucose tolerance from Last 3 Months or Most Recently Relevant to Health Maintenance Results * (ABNORMAL) Hemoglobin A1c (03/27/2024 7:38 AM EDT) Hemoglobin A1c 6.4(H) <6.0 % [facility] Comment:Hemoglobin A1C Refer ence Range Adults: 4.8 - 6.0 % Non diabetic: < 6.0 % Goal: < 7.0 %Additional Action Suggested: > 8.0 %Note: Hemoglobin A1c results are invalid for patients with abnormal amounts of HbF. Blood transfusions may impact the HbA1c concentration in the patient sample. Estimated Average Glucose 137 mg/dL [facility] Comment:eAG = Estimated ave rage glucose which is %A1C expressed asaverage glucose, using the formula of the M2P-NkgdsdyYhvqhzo Glucose study (ADAG), Diabetes Care, Vol.31,#8,Dec. 2007 Blood Venous blood specimen / Unknown 03/27/2024 7:38 AM EDT 03/27/2024 7:39 AM EDT us Yovani Smith MD LAB BLOOD ORDERABLES Final Resul t [facility] [address] [place] [address] [phone] * (ABNORMAL) Lipid Panel, Standard (09/11/2023 7:30 AM EDT) Triglycerides 68 <150 mg/dL [facility] Comment:Desirable Triglyceri de: less than 150 mg/dLBorderline High Triglyceride 150-199 mg/dLHigh Triglyceride: 200-499 mg/dLVery High Triglyceride: greater than or equal to 5OO mg/dL Cholesterol 174 <200 mg/dL [facility] Comment:Desirable Cholestero l: less than 200 mg/dLBorderline High Cholesterol: 200-239 mg/dLHigh Cholesterol: greater than 239 mg/dL LDL Cholesterol Calculated 121(H) <100 mg/dL [facility] Comment:Desirable LDL: less than 100 mg/dLNear Optimal/Above Optimal LDL: 110- 129 mg/dLBorderline High LDL: 130-159 mg/dLHigh LDL: 160-189 mg/dLVery High LDL: greater than or equal to 190 mg/dL HDL Cholesterol 40(L) >40 mg/dL [facility] Comment:Desirable HDL: great er than 40 mg/dL Note: This HDL assay may give artificially low results in patients with liver disease. Blood Venous blood specimen / Unknown 09/11/2023 7:30 AM EDT 09/11/2023 7:37 AM EDT us Yovani Name LAB BLOOD ORDERABLES Final Resul t [facility] [address] [place] [address] [phone] from Last 3 Months or Most Recently Relevant to Health Maintenance Insurance [facility] [place] Advance Directives Documents on File Type Date Recorded Patient Tacking Stitch Remover Expl anation Power of Laser Specialist 08/10/2023 Power of A ttorney Care Teams Relocation Director Relationship Specialty Start Date End Date Name, MD Yovani [address] [place] [address] PCP - General Family Medicine 12/23/21
--- OUTSIDE RECORDS SUMMARY | 2024-09-16 07:33 | XMS_ITS | Data Portability ---
Author Organization [employer] [facility], [place] [employer] Address [address] [place] [phone] Assessment No assessment recorded. Plan of Treatment Reminders Order Date Submit Date Provider Last Modified By Organization Details Last Modified Time Details Appointments None recorded. Lab None recorded. Referral None recorded. Procedures None recorded. Surgeries None recorded. Imaging None recorded. Medication Orders dextrometho rphan 10 mg-guaifene sin 187 mg/5 mL oral liquid 2023 024 [facility] #[id number], [address] [place], [address], 4 10:48:20 Patient TargetsNo targets recorded. Patient InstructionsNo instructions recorded. Reason for Referral None Reported. Medical Equipment None Reported. Allergies Allergen ID Allergen Name Allergen Category Reaction Reaction Severity Criticality Documentation Date Start Date Code Code System Note Provider Name and Address Organization Details Recorded Time 7800 Product containin g penicilli n (product) medicatio n Not available Not available Not available 03/26/2024 78154 8001 SNOMED Not Available [facility] - production 4 03:39:55 Medications Name Sig Start Date Stop Date Status Note LastModified by Organization Details LastModified Time amlodipine 2.5 mg tablet TAKE 1 TABLET BY MOUTH IN THE MORNING active Not Available Not Available No t Available omeprazole 20 mg capsule,delayed release TAKE 1 CAPSULE BY MOUTH EVERY DAY active Not Available Not Available No t Available dextromethorpha n 10 mg-guaifenesin 187 mg/5 mL oral liquid Take 5 mL 3 times a day by oral route as needed for 5 days. 2023 active Not Available Not Available Not Avai lable Vitals Date Recorded Body temperature Respiratory rate Oxygen saturation Oxygen saturation in Arterial blood by Pulse oximetry Body weight Heart rate Systolic blood pressure Diastolic blood pressure Provider Name and Address Organization Details Last Updated DateTime 4 98.8 [degF] 16 /min 98 % 98 % 53211.9 04 g 78 /min 144 mm[Hg] 74 mm[Hg] Not Available [facility] - production 4 10:44:17 Social History None recorded. Functional Status None recorded. Mental Status None recorded. Family History Nothing Reported. Medical History No medical history recorded. Past Encounters Encounter ID Performer Location Encounter Start Date Encounter Closed Date Diagnosis/Indication Diagnosis SNOMED-CT Code Diagnosis ICD10 Code Diagnosis Note [id number] MARIA G VALADEZ MD Main - [facility] [address] [place] [phone] 06/15/2023 10:44:14 06/15/2023 22:22:49 Infection of upper respiratory tract caused by SARS-CoV-2 [id number] 378364 U07.1 Evaluation in the field was performed by my tobacco warehouse manager colleague, as noted above, I provided real-time direction and supervisio n for this visit. The evaluation revealed 82 yo male with URI symptoms since 06/11 and was found to be Covid positive today with home Covid test, with mild cough. Daughter reports that he has been using Nyquill and Tylenol. Denies SOB, fever, chills, myalgia. Has been eating and drinking as usual. Had a shower this morning and sitting comfortabl y during the visit. Pt afebrile and saturating 98 % on RA. Impression :Covid 19 infection- mild Plan:Since pt with mild symptoms that have been going on for 5 days today will not treat with Paxlovid per discussion with familyCont inue Tylenol for myalgia and / or fever as neededRx send for guafenesin during the day. Can continue Nyquil at nightEncou rage fluid intake Primary care, consider: Please check with pt early next week to make sure that his cough is improving. Dispositio n: We discussed the diagnostic uncertaint y of home visits and the risk associated with this. In this case, the patient and I felt this to be an acceptable and reasonable amount of risk given the benefit of avoiding an ED visit. We discussed the need to seek care urgently/e mergently in the setting of any new or worsening serious symptoms, particular ly fever, chills, SOB, worsening cough, dizziness, N/V or any other concerns. Health Concerns Section Related Observation LastModified by Organization [employer]issy [employer] LastModified Time None Recorded Concern Status LastModified by Organization Details LastModified Time None Recorded Advance Directives Directive None Recorded Payers Encounter Date Sequence Insurance Name Policy Number Policy Ansari Covered Member ID Ansari Member ID Guarantor Name 06/15/2023 1 [facility] - DOS ON OR AFTER 2022 - DUAL ELIGIBLE - SNF OPTIONS AND ONE CARE (MEDICARE REPLACEMENT/ADV ANTAGE - HMO) Hal Archer [id number] Hal Archer Notes Date Note Type Note Provider Name and Address Organization Details Recorded Time 06/15/2023 text/html HPI: Elderly man at home with who tested +COVID today per Daughter. Call with patient reports URI symptoms. Cough with pain and use of OTC medications. May qualify for use of Paxlovid. .................. .................. .................. .................. .................. .................. .................. ............... [facility] Nurse Triage Notes (Bette Phelps): Comments: No further information required to process visit - Dispatch reports the member is sleeping and is requesting a visit tomorrow - Jorgito NOE .................. .................. .................. .................. .................. .................. .................. ............... Baseline Information: Baseline Creatinine: 1.16 mg/dL .................. .................. .................. .................. .................. .................. .................. ............... Extractor Operator Helper Note From Moris Mercado: Pt tested positive for Covid yesterday had had symptoms since Monday. Family wanted him evaluated. Pt co cough that hurt but no production of mucus. Denies fever vomiting or nausea. CP or SOB. Baseline vitals assessed. Lungs clear. A febrile. [facility] contacted and guaifenesin RX. Pt education on signs indicating the ER. Extractor Operator Helper Allergies: Penicillin .................. .................. .................. .................. .................. .................. .................. ............... Disposition: Elida VALADEZ MD [address] [facility],[address], [place], [phone], [place] - [employer] 06/15/2023 12:15:55
[2024-09-16 08:44] LABS: Estimated Average Glucose 186 mg/dL; Hemoglobin A1C 254.4617 umol/L; Hemoglobin A1c % 8.1 % (<6.0)
[2024-09-16 09:04] LABS: Anion Gap 11 (12-20); Blood Urea Nitrogen 21 mg/dL (9-16); Calcium 9.1 mg/dL (8.4-10.2); Carbon Dioxide 29 mmol/L (22-29); Chloride 105 mmol/L (96-108); Estimated Glomerular Filt Rate > 60; Glucose Random 206 mg/dL (60-115); Potassium 3.9 mmol/L (3.3-5.1); Sodium 141 mmol/L (135-145)
[2024-09-16 09:19] LABS: PSA,Total (Free>4and<10) 7.26 ng/mL (0.00-4.00)
[2024-09-17 11:58] LABS: Percent Free Prostate Spec Ag 24 % (calc) (>25); Prostate Specific Ag Total 8.2 ng/mL (< OR = 4.0)
== END 2024-09-16 07:31 | disposition home or self-care (01) ==
LOC: HO.LAB 07:30
PROVIDERS: Absent Provider Internal Medicine Geriatric Medicine; PCP Internal Medicine Geriatric Medicine; Visit Provider Urology
DX: I10 Essential (primary) hypertension (principal); R97.20 Elevated prostate specific antigen [PSA]; R73.02 Impaired glucose tolerance (oral); Z12.5 Encounter for screening for malignant neoplasm of prostate
CPT/HCPCS: 36415; 80048; 83036; 84153; 84154

== ENCOUNTER 2024-10-01 08:47 | Outpatient (AMB) | payer OTHER, SELFPAY ==
--- NOTE | 2024-10-01 08:50 | A.OFFVIS_ITS ---
Intake Visit Reasons: 6m/PSA Intake Note: Patient is present for 6M/PSA Urology Medication:NONE Antibiotic Allergy:CIPROFLOXACIN,PENICILLINS Blood Thinner:NONE Managing Consultant Required: No Allergies ciprofloxacin [CIPROFLOXACIN] Allergy (Intermediate, Verified 10/01/24 08:51) ITCHING Penicillins [PENICILLINS] Allergy (Unknown, Verified 10/01/24 08:51) UNKNOWN From PERCOCET Adverse Reaction (Intermediate, Uncoded 10/01/24 08:51) AGITATION/VOMITING HPI Comments Details: Hal is a pleasant male. He is a patient of Dr Dow. He is seen for the following urologic conditions. - Bladder stone - lower urinary tract symptoms Six-month follow-up Translation by PSA trending upward Slow movement High free percentage Check PSA in 6 months to ensure stability At this point does not want to be on finasteride Lower Urinary Tract Symptoms:? Prior prostate procedures Prior elevated and variable PSA Current visit is for?further evaluation of, lower urinary tract symptoms, predominate obstructive symptoms.? Current treatment includes?medication, 5-AR.? Prior treatments include?2010 , TURP ?03/13 laser procedure for bladder stones - BPH tissue ?06/15 UTI ?11/13 Bladder stone removed.? Prostate Symptom Score?06/16 , Mild (0-8), Bother 2.? Symptoms include?incomplete emptying, weak stream, nocturia (>2), and are improving ?06/16 , incomplete emptying, nocturia (>2), and are stable.? Results from testing include? cystoscopy ? 09/13 TURP defect from procedure 2009, bladder stones recurrent ? renal/bladder us ? 06/15 6 mm left kidney stone. Asymptomatic. 90 mg prostate per management. PVR 125. 06/16 Bilateral small renal stones. Enlarged prosatte capsule ? Prior Prostate Score?moderate.? PSA?07/15 - 6.2 free 30% ?01/12 6.6 30%, 06/16 3.9, 12/14 4.7, 07/18 PSA 7.4,?01/15 4.8, 09/17 4.2 35%, 03/19 4.5 40%, 03/20 6.3 F22%, 03/21 6.7 31%, 09/20 8.2 24% ? Prostate volume?30-50gm.? Testing at next visit will include?Prostate Symptom Score, bladder scan.? PFSH Medical History AAA (abdominal aortic aneurysm) without rupture Elevated prostate specific antigen [PSA] Surgical History No pertinent past surgical history Family History Father No problems noted. Mother No problems noted. Social History Patient Tobacco Use Status: Never used Tobacco Review of Systems Const Denies chills and Denies fever(s) Card Reports no additional complaints and Denies syncope Resp Denies cough GI Denies abdominal pain and Denies heartburn Reports as per HPI and Denies change in libido Neuro Denies syncope Psych Denies change in libido Endo Denies change in libido Physical Exam Const General: cooperative, healthy appearing, comfortable and no acute distress Orientation/consciousness: patient oriented x3 HEENT Face and sinus: Yes normal facial exam Mouth: moist mucous membranes Neck Neck: Yes normal visual inspection, Yes full ROM and Yes trachea midline Chest Chest palpation & inspection: normal inspection of the chest Resp Effort & Inspection: normal respiratory effort, able to speak in complete sentences and no respiratory distress GI Inspection: Yes normal to inspection Back/Spine/Pelvis Cervical Spine: normal cervical lordosis Thoracic/Lumbar Spine: thoracic and lumbar spine normal to inspection Skin General skin exam: no rashes or lesions noted Neuro General: patient oriented x3, gait normal, tone normal and moves all extremities Extrem General: Yes normal to inspection and Yes capillary refill normal Assessment & Plan Assessment & Plan (1) Elevated prostate specific antigen [PSA]: Code(s): R97.20 - Elevated prostate specific antigen [PSA] Category: Medical (2) Bladder stones: Code(s): N21.0 - Calculus in bladder Category: Medical (3) BPH w urinary obs/LUTS: Code(s): N40.1 - Benign prostatic hyperplasia with lower urinary tract symptoms; N13.8 - Other obstructive and reflux uropathy Category: Medical Plan 6m f/u PSA Orders: Orders PSA,Total (Free>4and<10) 6 Months R97.20 - Elevated prostate specific antigen [PSA] Patient Instructions: This note is constructed using voice recognition software. While every effort has been made to ensure accuracy knit goods cutter hand errors may have been included. Imaging studies, laboratory and physical exam results were discussed and reviewed in detail. No major barriers to patient understanding were identified. An opportunity to ask questions regarding the treatment plan was provided. All questions were answered. The patient expressed understanding and agreement with the above treatment plan. The patient is aware they should contact our office by phone for worsening of their current condition or the appearance of new urologic symptoms. Compliance is encouraged with any medications and followup testing that is ordered. It is a privilege to participate in the urologic care of your patient. If you have any questions or concerns regarding treatment for the above conditions, or other urologic issues, please do not hesitate to contact me. The office telephone contact is [phone]. Sincerely, Dr Blaze Marie MD, [facility] - Urology Compassionate Specialist Care for the Genitourinary System Coding Level of Care Code Est Pt Level 3 (36259) Complex EM visit Add On G2211 Diagnoses Elevated prostate specific antigen [PSA] R97.20 Bladder stones N21.0 BPH w urinary obs/LUTS N40.1; N13.8
--- OUTSIDE RECORDS SUMMARY | 2024-10-01 09:20 | XMS_ITS | Data Portability ---
Author Organization [employer] [facility], [place] [email or web address] Address [address] [place] [phone] Assessment No assessment recorded. Plan of Treatment Reminders Order Date Submit Date Provider Last Modified By Organization Details Last Modified Time Details Appointments None recorded. Lab None recorded. Referral None recorded. Procedures None recorded. Surgeries None recorded. Imaging None recorded. Medication Orders dextrometho rphan 10 mg-guaifene sin 187 mg/5 mL oral liquid 2023 024 [facility]/Pharmacy #[id number], [address] [place], [address], 4 10:48:20 Patient TargetsNo targets recorded. Patient InstructionsNo instructions recorded. Reason for Referral None Reported. Medical Equipment None Reported. Allergies Allergen ID Allergen Name Allergen Category Reaction Reaction Severity Criticality Documentation Date Start Date Code Code System Note Provider Name and Address Organization Details Recorded Time 7800 Product containin g penicilli n (product) medicatio n Not available Not available Not available 03/26/2024 40549 8001 SNOMED Not Available [facility] - production [...] [degF] 16 /min 98 % 98 % 87230.9 04 g 78 /min 144 mm[Hg] 74 mm[Hg] Not Available [facility] - production 4 10:44:17 Social History None recorded. Functional Status None recorded. Mental Status None recorded. Family History Nothing Reported. Medical History No medical history recorded. Past Encounters Encounter ID Performer Location Encounter Start Date Encounter Closed Date Diagnosis/Indication Diagnosis SNOMED-CT Code Diagnosis ICD10 Code Diagnosis Note [id number] MARIA G VALADEZ MD Main - [facility] [address] [place] [phone] 06/15/2023 10:44:14 06/15/2023 22:22:49 Infection of upper respiratory tract caused by SARS-CoV-2 [id number] 605137 U07.1 Evaluation in the field was performed by my window cleaner colleague, as noted above, I provided real-time [...] Ansari Member ID Guarantor Name 06/15/2023 1 [facility] - DOS ON OR AFTER 2022 - DUAL ELIGIBLE - GROUP HOME OPTIONS AND ONE CARE (MEDICARE REPLACEMENT/ADV ANTAGE - HMO) Hal Archer [id number] Hal Archer Notes Date Note Type Note [...] .................. .................. .................. .................. .................. .................. ............... Labor Delivery Specialist Note From Moris Mercado: Pt tested positive for Covid yesterday had had symptoms since Monday. Family wanted him evaluated. Pt co cough that hurt but no production of mucus. Denies fever vomiting or nausea. CP or SOB. Baseline vitals assessed. Lungs clear. A febrile. [facility] contacted and guaifenesin RX. Pt education on signs indicating the ER. Labor Delivery Specialist Allergies: Penicillin .................. .................. .................. .................. .................. .................. .................. ............... Disposition: Elida VALADEZ MD [address] [facility],[address], [place], [address], [place] - [employer] ANTON 06/15/2023 12:15:55
--- OUTSIDE RECORDS SUMMARY | 2024-10-01 09:20 | XMS_ITS | Clinical Summary ---
Author Organization [email or web address] Address [address] [place] [address] 7[address] [place] [address] Care Team Providers Care Owner Spa Director Name Role Phone Name, Yovani MARTINEZ Primary Care Provider [phone] Allergies Active Allergy Reactions Criticality Noted Date Comments Penicillin G 04/07/2016 Penicillins Unknown 09/04/2024 Tramadol 04/07/2016 Medications omeprazole (PriLOSEC) [address] capsule TAKE 1 CAPSULE BY MOUTH EVERY DAY 90 capsule 1 04/17/2023 Active amLODIPine (Norvasc) 5 MG tabletIndication s:Hypertension, unspecified type,Impaired glucose tolerance Take 1 tablet (5 mg) by mouth Once per day. 30 tablet 11 01/05/2024 01/05/20 25 Active FREESTYLE LITE test strip Use to test blood sugar 1 times daily 100 each 12 09/17/2024 09/18/19 26 Active Lancets misc Use to test blood sugar 1 times daily 100 each 09/17/2024 Active Alcohol Swabs 70 % pads Use to test blood sugar 1 times daily 100 each 09/17/2024 Active Blood Glucose Monitoring Suppl (FreeStyle [place] Lite) w/Device kit Use to test blood sugar 1 times daily 1 kit 09/17/2024 Active metFORMIN (Glucophage) 500 MG tabletIndication s:Type 2 Diabetes Mellitus Take 1 tablet (500 mg) by mouth Once per day. 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 Asthma 05/15/2012 Benign prostatic hyperplasia 05/15/2012 Gastroesophageal reflux disease 05/15/2012 New onset type 2 diabetes mellitus 05/15/2012 Encounters Date Type Department Care Team Description 09/17/2024 Telephone [facility] MED[facility]INE [address] [place] [phone] Katrina Dinh, HASMUKH Results 09/17/2024 Orders Only [facility]INE [address] [place] [id number] Yovani Smith MD New onset type 2 diabetes mellitus (CMS/HCC) (Primary Dx) 09/17/2024 Orders Only [address] [address] Yovani Smith MD New onset type 2 diabetes mellitus (CMS/HCC) (Primary Dx) 09/16/2024 Orders Only GENERIC EXTERNAL DATA DEPARTMENT Provider, Generic External Data 09/04/2024 9:30 AM EDT Office Visit [address] [address] Yovani Smith MD Hypertension, unspecified type (Primary Dx); Impaired [...] 09/04/2024 9:17 AM EDT Plan of Treatment Upcoming Encounters Date Type Department Care Team (Late st Contact Info) Description 10/18/2024 9:00 AM EDT Medication Management [facility] MEDICINE [address] [place] [address] Terri Sr, PharmD [address] [place] [address] Health Maintenance Due Date Last Done Comments Diabetes: Foot Exam 1950 Eye Exam 1950 Zoster Vaccines (1 of 2) 1990 RSV Patients and Patients Aged 60 years or older (1 - 1-dose 75+ series) 12/31/2015 DTaP/Tdap/Td Vaccines (1 - Tdap) 05/12/2017 05/11/2017, 07/12/2002 Pneumococcal Vaccine: 50+ Years (3 of 3 - PCV20 or PCV21) 05/12/2019 05/12/2014, 12/17/2002 COVID-19 Vaccine ( season) 2024 10/05/2021, 08/25/2020, 07/28/2020 Influenza Vaccine (#1) 2024 5, 05/12/2014, 03/15/2013, Additional history exists Diabetes: Urine Protein Screening 09/10/2024 09/11/2023 Lipid Panel 09/10/2024 09/11/2023, 05/31, 12/23/2021 Diabetes: Hemoglobin A1C 12/16/2024 025, 03/27/2024, 09/06/2023, Additional history exists Alcohol/Substance Use Screening 04/03/2025 04/03/2024 Depression Screening 09/04/2025 09/04/2024, 09/05/19 25 SDOH Screening 09/04/2025 09/04/2024 Tobacco Screening 09/04/2025 09/04/2024 HIB Vaccines Aged Out No longer eligi [...] Procedure Name Priority Date/Time Associated Diagnosis Comments PSA, FREE AND TOTAL Routine 09/16/2024 9 :19 AM EDT PSA, TOTAL WITH REFLEX TO PSA, FREE Routine 09/16/2024 7:39 AM EDT HEMOGLOBIN A1C Routine 09/16/2024 7:39 AM EDT Impaired glucose tolerance BASIC METABOLIC PANEL Routine 09/16/2024 7:39 AM EDT Hypertension, unspecified type ALBUMIN, RANDOM URINE W/CREATININE Routine 09/11/2023 7:35 AM EDT Hypertension, unspecified type Impaired glucose tolerance LIPID PANEL, STANDARD Routine 09/11/2023 7:30 AM EDT Hypertension, unspecified type Impaired glucose tolerance from Last 3 Months or Most Recently Relevant to Health Maintenance Results * (ABNORMAL) PSA, Free and Total (09/16/2024 9:19 AM EDT) PSA, Total 8.2(A) < OR = 4.0 ng/mL [facility] PSA % Free 24(A) >25 % (calc) [facility] Comment: PSA(ng/mL) ?Free PSA(%) ? Estimated(x) Probability ? of Cancer(as%)0-2.5 ?(*) ? Approx. 12.6-4.0(1) ? 0-27(2) ? 24(3)4.1-10(4) ?0-10 ?56 ? 11-15 ? 28 ? 16-20 ? 20 ? 21-25 ? 16 ? >or =26 ? 8>10(+) ? N/A ?>50References:(1)Jorge.:Urology 60: 469-474 (2002) ? (2)Jorge.:J.Urol 168: 922-925 (2002) ?Free PSA(%) ?? Sensitivity(%) ??Specificity(%) ?< or = 25 ?85 ?19 ?< or = 30 ?93 ? 9 ? (3)Jorge.:PAMELA 277: [id number] (1996) ? (4)Manav et al.:PAMELA 279: 7195-1829 (1998)(x)These estimates vary with age, ethnicity, family ?? history and TYREL results.(*)The diagnostic usefulness of % Free PSA has not been ?? established in patients with total PSA below 2.6 ng/mL(+)In men with PSA above 10 ng/mL, prostate cancer risk is ?? determined by total PSA alone.The Total PSA value from this assay system isstandardized against the equimolar PSA standard.The test result will be approximately 20% higherwhen compared to the WHO-standardized Total PSA(Siemens assay). Comparison of serial PSA resultsshould be interpreted with this fact in mind.PSA was performed using the Chiqui CoulterImmunoassay method. Values obtained from differentassay methods cannot be used interchangeably. PSAlevels, regardless of value, should not be interpretedas absolute evidence of the presence or absence ofdisease.THIS TEST WAS PERFORMED AT:[facility] [address] ??[id number] DAI MD PSA, Free 2.0 ng/mL [facility] 09/16/2024 9:19 AM EDT 09/16/2024 9:19 AM EDT Generic External Data Provider LAB BLOOD ORDERAB LES Final Result [facility] [address] [place] [address] [phone] * (ABNORMAL) PSA, Total With Reflex to PSA, Free (09/16/2024 7:39 AM EDT) PSA,Total (Free>4and<10) 7.26(H) 0.00 - 4.00 ng/mL [facility] Comment:PSA methodology: Katia Riddle i ChemiluminescentMicroparticle Immunoassay (CMIA) 09/16/2024 7:39 AM EDT 09/16/2024 7:40 AM EDT Generic External Data Provider LAB BLOOD ORDERAB LES Final Result Performing Organization Address [facility] Co de Phone Number [facility] [address] [place] [phone] * (ABNORMAL) Hemoglobin A1c (09/16/2024 7:39 AM EDT) Hemoglobin A1c 8.1(H) <6.0 % [facility] Comment:Hemoglobin A1C Refer ence Range Adults: 4.8 - 6.0 % Non diabetic: < 6.0 % Goal: < 7.0 %Additional Action Suggested: > 8.0 %Note: Hemoglobin A1c results are invalid for patients with abnormal amounts of HbF. Blood transfusions may impact the HbA1c concentration in the patient sample. Estimated Average Glucose 186 mg/dL [facility] Comment:eAG = Estimated ave rage glucose which is %A1C expressed asaverage glucose, using the formula of the S0A-TiqpnfuHapllbz Glucose study (ADAG), Diabetes Care, Vol.31,#8,Dec. 2007 Blood Venous blood specimen / Unknown 09/16/2024 7:39 AM EDT 09/16/2024 7:40 AM EDT us Yovani Smith MD LAB BLOOD ORDERABLES Final Resul t Performing Organization Address [facility] Co de Phone Number [facility] [address] [place] [phone] * (ABNORMAL) Basic Metabolic Panel (09/16/2024 7:39 AM EDT) Sodium 141 135 - 145 mmol/L [facility] Potassium 3.9 3.3 - 5.1 mmol/L [facility] Chloride 105 96 - 108 mmol/L [facility] Carbon Dioxide 29 22 - 29 mmol/L [facility] Anion Gap 11(L) 12 - 20 [facility] Urea Nitrogen (BUN) 21(H) 9 - 16 mg/dL [facility] Creatinine, Serum 1.01 0.5 - 1.4 mg/dL [facility] Estimated Glomerular Filt Rate >60 [facility] Comment:Chronic Kidney Disea se: Estimated GFR < 60 mL/min/1.11l7Sipapo Kidney Disease: Estimated GFR < 15 mL/min/1.73m2 Glucose 206(H) 60 - 115 mg/dL [facility] Calcium 9.1 8.4 - 10.2 mg/dL [facility] Blood Venous blood specimen / Unknown 09/16/2024 7:39 AM EDT 09/16/2024 7:40 AM EDT us Yovani Smith MD LAB BLOOD ORDERABLES Final Resul t Performing Organization Address [facility] de Phone Number [facility] [address] [place] [phone] * (ABNORMAL) Albumin, Random Urine W/Creatinine (09/11/2023 7:35 AM EDT) Creatinine, Urine 190.58 mg/dL [facility] Microalbumin Urine 235.0 mg/L [facility] Microalbum Creatinine Ratio Ur 123.3(H) <30 ug/mg cr [facility] Comment:Albumin/Creatinine R atio Reference Ranges: Normal: < 30 ug/mg creatinine Microalbuminuria: 30 - 300 ug/mg creatinineClinical Albuminuria: > 300 ug/mg creatinine Urine (Urine, Random) 09/11/2023 7:35 AM EDT 09/11/2023 8:21 AM EDT us Yovani Smith MD LAB URINE ORDERABLES Final Resul t Performing Organization Address [facility] Co de Phone Number [facility] [address] [place] [address] [phone] * (ABNORMAL) Lipid Panel, Standard (09/11/2023 7:30 AM EDT) Triglycerides 68 <150 mg/dL [facility] Comment:Desirable Triglyceri de: less than 150 mg/dLBorderline High Triglyceride 150-199 mg/dLHigh Triglyceride: 200-499 mg/dLVery High Triglyceride: greater than or equal to 5OO mg/dL Cholesterol 174 <200 mg/dL [facility] Comment:Desirable Cholestero l: less than 200 mg/dLBorderline High Cholesterol: 200-239 mg/dLHigh Cholesterol: greater than 239 mg/dL LDL Cholesterol Calculated 121(H) <100 mg/dL [facility] Comment:Desirable LDL: less than 100 mg/dLNear Optimal/Above Optimal LDL: 110- 129 mg/dLBorderline High LDL: 130-159 mg/dLHigh LDL: 160-189 mg/dLVery High LDL: greater than or equal to 190 mg/dL HDL Cholesterol 40(L) >40 mg/dL [facility] Comment:Desirable HDL: great er than 40 mg/dL Note: This HDL assay may give artificially low results in patients with liver disease. Blood Venous blood specimen / Unknown 09/11/2023 7:30 AM EDT 09/11/2023 7:37 AM EDT us Yovani Smith MD LAB BLOOD ORDERABLES Final Resul t [facility] [address] [place] [phone] from Last 3 Months or Most Recently Relevant to Health Maintenance Insurance [facility] HOME OPTIONS (HMO D-SNP) [place] [id number] * Guarantor: Hal Archer Account Type Relation to Patient Date of Phone Billing Address Personal/Family Self [address] Advance Directives Documents on File Type Date Recorded Patient Director Of Publications Expl anation Power of Duck Farmer 08/10/2023 Power of A ttorney Care Teams Owner Spa Director Relationship Specialty Start Date End Date Name, MD Yovani [address] [place] [phone] PCP - General Family Medicine 12/23/21
== END 2024-10-01 09:55 | disposition home or self-care (01) ==
LOC: HO.HUSH 08:48
PROVIDERS: PCP Internal Medicine Geriatric Medicine; Visit Provider Urology
DX: R97.20 Elevated prostate specific antigen [PSA] (principal); N21.0 Calculus in bladder; N40.1 Benign prostatic hyperplasia with lower urinary tract symptoms; N13.8 Other obstructive and reflux uropathy
CPT/HCPCS: 99213; G2211

== ENCOUNTER → 2024-10-01 08:47 | Outpatient (BNVA) | payer OTHER, SELFPAY | PROVIDERS: PCP Internal Medicine Geriatric Medicine; Visit Provider Urology | DX: R97.20 Elevated prostate specific antigen [PSA] (principal); N40.1 Benign prostatic hyperplasia with lower urinary tract symptoms; N21.0 Calculus in bladder; N13.8 Other obstructive and reflux uropathy | CPT/HCPCS: 99212 ==

== ENCOUNTER 2024-12-06 07:55 | Outpatient (REF) | payer OTHER, SELFPAY ==
--- OUTSIDE RECORDS SUMMARY | 2024-12-06 07:58 | XMS_ITS | Clinical Summary ---
Author Organization [employer] Address [address] [place] [address] [address] [place] [address] Care Team Providers Care Cake Tester Name Role Phone Name, Yovani MARTINEZ Primary Care Provider [phone] Terri Sr PharmD Unavailable [phone] Allergies Active Allergy Reactions Criticality Noted Date Comments Penicillin G 04/07/2016 Penicillins Unknown 09/04/2024 Tramadol 04/07/2016 Medications omeprazole (PriLOSEC) [address] capsule TAKE 1 CAPSULE BY MOUTH EVERY DAY 90 capsule 1 04/17/20 23 Active Additional Information Patient taking differently: 20 mg Oral Daily PRN, heartburn, TAKE 1 CAPSULE BY MOUTH EVERY DAY, Reported on 11/25/2024 FREESTYLE LITE test strip Use to test blood sugar 1 times daily 100 each 12 09/18/19 25 026 Active Lancets misc Use to test blood sugar 1 times daily 100 each 09/18/19 25 Active Alcohol Swabs 70 % pads Use to test blood sugar 1 times daily 100 each 09/18/19 25 Active Blood Glucose Monitoring Suppl (FreeStyle [place] Lite) w/Device kit Use to test blood sugar 1 times daily 1 kit 09/18/19 25 Active losartan (Cozaar) 25 MG tabletIndicati ons:New onset type 2 diabetes mellitus (CMS/HCC),Hype rtension, unspecified type Take 1 tablet (25 mg) by mouth Once per day. 90 tablet 1 11/26/19 25 Active metFORMIN XR (Glucophage-XR ) 500 MG 24 hr tabletIndicati ons:New onset type 2 diabetes mellitus (CMS/HCC) Take 1 tablet (500 mg) by mouth with breakfast and with evening meal. Do not crush, chew, or split. 60 tablet 5 11/26/19 25 Active amLODIPine (Norvasc) 5 MG tabletIndicati ons:Hypertensi on, unspecified type,Impaired glucose tolerance Take 1 tablet (5 mg) by mouth Once per day. 30 tablet 11 01/05/20 24 025 Discontinued(A lternate therapy) metFORMIN XR (Glucophage-XR ) 500 MG 24 hr tablet Take 1 tablet (500 mg) by mouth with breakfast. Do not crush, chew, or split. 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 Asthma 05/15/2012 Benign prostatic hyperplasia 05/15/2012 Gastroesophageal reflux disease 05/15/2012 New onset type 2 diabetes mellitus 05/15/2012 Encounters Date Type Department Care Team Description 11/25/2024 Travel 10/31/2024 Telephone [facility] [address] [place] [phone] Damion Acuna [place] december recalls 10/18/2024 Travel 09/17/2024 Telephone [facility] [address] [place] [address] Katrina Dinh RN Results 09/17/2024 Orders Only [facility] [address] [place] [phone] Yovani Smith MD New onset type 2 diabetes mellitus ([facility]/HCC) (Primary Dx) 09/17/2024 Orders Only [facility] [address] [place] [phone] Yovani Smith MD New onset type 2 diabetes mellitus (CMS/HCC) (Primary Dx) 09/16/2024 Orders Only GENERIC EXTERNAL DATA DEPARTMENT Provider, Generic External Data from Last 3 Months Immunizations Immunization Administration Dates Next Due Influenza injectable quadrivalent [...] Sign Reading Time Taken Comments Blood Pressure 132/62 11/25/2024 9:53 AM EDT Pulse 68 09/04/2024 9:17 AM EDT Temperature 36.6 C (97.8 F) 09/04/2024 9:17 AM EDT Respiratory Rate 18 09/04/2024 9:17 AM EDT Oxygen Saturation 98% 09/04/2024 9:17 AM EDT Inhaled Oxygen Concentration - - Weight 73.5 kg (162 lb) 09/04/2024 9:17 AM EDT Height 172.7 cm (5' 8 ) 09/04/2024 9:17 AM EDT Body Mass Index 24.63 09/04/2024 9:17 AM EDT Plan of Treatment Upcoming Encounters Date Type Department Care Team (Late st Contact Info) Description 01/08/2025 9:00 AM EDT Medication Management [facility] [address] [place] [phone] Terri Sr, PharmD [address] [place] [phone] 01/29/2025 9:30 AM EDT Office Visit [facility] [address] [place] [phone] Name, MD Yovani [address] [place] [phone] Health Maintenance Due Date Last Done Comments Diabetes: Foot Exam 1950 Zoster Vaccines (1 of 2) 1990 RSV Patients and Patients Aged 60 years or older (1 - 1-dose 75+ series) 12/31/2015 DTaP/Tdap/Td Vaccines (1 - Tdap) 05/12/2017 05/11/2017, 07/12/2002 Pneumococcal Vaccine: 50+ Years (3 of 3 - PCV20 or PCV21) 05/12/2019 05/12/2014, 12/17/2002 COVID-19 Vaccine (4 - season) 2024 10/05/2021, 08/25/2020, 07/28/2020 Diabetes: Urine Protein Screening 09/10/2024 09/11/2023 Lipid Panel 09/10/2024 09/11/2023, 05/31, 12/23/2021 Diabetes: Hemoglobin A1C 12/16/2024 025, 03/27/2024, 09/06/2023, Additional history exists Influenza Vaccine (#1) 2025 5, 05/12/2014, 03/15/2013, Additional history exists Alcohol/Substance Use Screening 04/03/2025 04/03/2024 Depression Screening 09/04/2025 09/04/2024, 09/05/19 25 SDOH Screening 09/04/2025 09/04/2024 Tobacco Screening 09/04/2025 09/04/2024 Eye Exam 10/10/2026 10/10/2024, 10/10/2024 HIB Vaccines Aged Out No longer eligi [...] patient's age to complete this topic Meningococcal B Vaccine Aged Out No l onger eligible based on patient's age to complete [...] Total 8.2(A) < OR = 4.0 ng/mL [facility] PSA % Free 24(A) >25 % (calc) [facility] Comment: PSA(ng/mL) Free PSA(%) Estimated(x) Probability of Cancer(as%)0-2.5 (*) Approx. 12.6-4.0(1) 0-27(2) 24(3)4.1-10(4) 0-10 56 11-15 28 16-20 20 21-25 16 >or =26 8>10(+) N/A >50References:(1)Antonyona et al.:Urology 60: 469-474 (2001) (2)Catalona et al.:J.Urol 168: 922-925 (2001) Free PSA(%) Sensitivity(%) Specificity(%) < or = 25 85 19 < or = 30 93 9 (3)Catalona et al.:PAMELA 277: 8389-6737 (1996) (4)Catalona et al.:PAMELA 279: 6672-4569 (1997)(x)These estimates vary with age, ethnicity, family history and TYREL results.(*)The diagnostic usefulness of % Free PSA has not been established in patients with total PSA below 2.6 ng/mL(+)In men with PSA above 10 ng/mL, prostate cancer risk is determined by total PSA alone.The Total PSA value from this assay system isstandardized against the equimolar PSA standard.The test result will be approximately 20% higherwhen compared to the WHO-standardized Total PSA(Siemens assay). Comparison of serial PSA resultsshould be interpreted with this fact in mind.PSA was performed using the Delta Systems EngineeringImmunoassay method. Values obtained from differentassay methods cannot be used interchangeably. PSAlevels, regardless of value, should not be interpretedas absolute evidence of the presence or absence ofdisease.THIS TEST WAS PERFORMED AT:[facility] [place] [id number] DAI MD PSA, Free 2.0 ng/mL [facility] 09/16/2024 9:19 AM EDT 09/16/2024 9:19 AM EDT Generic External Data Provider LAB BLOOD ORDERAB LES Final Result Performing Organization Address [facility] Co de Phone Number [facility] [address] [place] [phone] * (ABNORMAL) PSA, Total With Reflex to PSA, Free (09/16/2024 7:39 AM EDT) PSA,Total (Free>4and<10) 7.26(H) 0.00 - 4.00 ng/mL [facility] Comment:PSA methodology: Abb sami Alinity i ChemiluminescentMicroparticle Immunoassay (CMIA) 09/16/2024 7:39 AM EDT 09/16/2024 7:40 AM EDT Generic External Data Provider LAB BLOOD ORDERAB LES Final Result Performing Organization Address [facility] Co de Phone Number [facility] [address] [place] [phone] * (ABNORMAL) Hemoglobin A1c (09/16/2024 7:39 AM EDT) Hemoglobin A1c 8.1(H) <6.0 % [facility] Comment:Hemoglobin A1C Refer ence Range Adults: 4.8 - 6.0 % Non diabetic: < 6.0 % Goal: < 7.0 %Additional Action Suggested: > 8.0 %Note: Hemoglobin A1c results are invalid for patients with abnormal amounts of HbF. Blood transfusions may impact the HbA1c concentration in the patient sample. Estimated Average Glucose 186 mg/dL [facility] Comment:eAG = Estimated ave rage glucose which is %A1C expressed asaverage glucose, using the formula of the O4K-GyavmagZgmtoff Glucose study (ADAG), Diabetes Care, Vol.31,#8,Dec. 2007 Blood Venous blood specimen / Unknown 09/16/2024 7:39 AM EDT 09/16/2024 7:40 AM EDT us Yovani Smith MD LAB BLOOD ORDERABLES Final Resul t Performing Organization Address [facility] de Phone Number [facility] [address] [place] [address] [phone] * (ABNORMAL) Basic Metabolic Panel (09/16/2024 7:39 AM EDT) Sodium 141 135 - 145 mmol/L [facility] Potassium 3.9 3.3 - 5.1 mmol/L [facility] Chloride 105 96 - 108 mmol/L [facility] Carbon Dioxide 29 22 - 29 mmol/L [facility] Anion Gap 11(L) 12 - 20 [facility] Urea Nitrogen (BUN) 21(H) 9 - 16 mg/dL [facility] Creatinine, Serum 1.01 0.5 - 1.4 mg/dL [facility] Estimated Glomerular Filt Rate >60 [facility] Comment:Chronic Kidney Disea se: Estimated GFR < 60 mL/min/1.88k6Qvinwa Kidney Disease: Estimated GFR < 15 mL/min/1.73m2 Glucose 206(H) 60 - 115 mg/dL [facility] Calcium 9.1 8.4 - 10.2 mg/dL [facility] Blood Venous blood specimen / Unknown 09/16/2024 7:39 AM EDT 09/16/2024 7:40 AM EDT us Yovani Smith MD LAB BLOOD ORDERABLES Final Resul t Performing Organization Address [facility] Co de Phone Number [facility] [address] [place] [phone] * (ABNORMAL) Albumin, Random Urine W/Creatinine (09/11/2023 7:35 AM EDT) Creatinine, Urine 190.58 mg/dL [facility] Microalbumin Urine 235.0 mg/L [facility] Microalbum Creatinine Ratio Ur 123.3(H) <30 ug/mg cr [facility] Comment:Albumin/Creatinine R atio Reference Ranges: Normal: < 30 ug/mg creatinine Microalbuminuria: 30 - 300 ug/mg creatinineClinical Albuminuria: > 300 ug/mg creatinine Urine (Urine, Random) 09/11/2023 7:35 AM EDT 09/11/2023 8:21 AM EDT us Yovani Name MD LAB URINE ORDERABLES Final Resul t [facility] [address] [place] [phone] * (ABNORMAL) Lipid Panel, Standard (09/11/2023 7:30 AM EDT) Triglycerides 68 <150 mg/dL [facility] Comment:Desirable Triglyceri de: less than 150 mg/dLBorderline High Triglyceride 150-199 mg/dLHigh Triglyceride: 200-499 mg/dLVery High Triglyceride: greater than or equal to 5OO mg/dL Cholesterol 174 <200 mg/dL [facility] Comment:Desirable Cholestero l: less than 200 mg/dLBorderline High Cholesterol: 200-239 mg/dLHigh Cholesterol: greater than 239 mg/dL LDL Cholesterol Calculated 121(H) <100 mg/dL [facility] Comment:Desirable LDL: less than 100 mg/dLNear Optimal/Above Optimal LDL: 110- 129 mg/dLBorderline High LDL: 130-159 mg/dLHigh LDL: 160-189 mg/dLVery High LDL: greater than or equal to 190 mg/dL HDL Cholesterol 40(L) >40 mg/dL [facility] Comment:Desirable HDL: great er than 40 mg/dL Note: This HDL assay may give artificially low results in patients with liver disease. 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
--- OUTSIDE RECORDS SUMMARY | 2024-12-06 07:59 | XMS_ITS | Data Portability ---
Author Organization [place] - [employer] [facility], Or [employer] [facility] Address [address] [place] [phone] Assessment No assessment recorded. Plan of Treatment Reminders Order Date Submit Date Provider Last Modified By Organization Details Last Modified Time Details Appointments None recorded. Lab None recorded. Referral None recorded. Procedures None recorded. Surgeries None recorded. Imaging None recorded. Medication Orders dextrometho rphan 10 mg-guaifene sin 187 mg/5 mL oral liquid 2023 024 [facility]/Pharmacy #[id number], [address] [place], [address], 4 10:48:20 Patient TargetsNo targets recorded. Patient InstructionsNo instructions recorded. Reason for Referral None Reported. Medical Equipment None Reported. Allergies Allergen ID Allergen Name Allergen Category Reaction Reaction Severity Criticality Documentation Date Start Date Code Code System Note Provider Name and Address Organization Details Recorded Time 7800 Product containin g penicilli n (product) medicatio n Not available Not available Not available 03/26/2024 95966 8001 SNOMED Not Available [facility] - production [...] Pulse oximetry Body weight Heart rate Systolic And Diastolic Provider Name and Address Organization Details Last Updated DateTime 4 98.8 [degF] 16 /min 98 % 98 % 52717.9 04 g 78 /min 144/74 mm[Hg] Not Available [facility] - production 4 10:44:17 Social History None recorded. Functional Status None recorded. Mental Status None recorded. Family History Nothing Reported. Medical History No medical history recorded. Past Encounters Encounter ID Performer Location Encounter Start Date Encounter Closed Date Diagnosis/Indication Diagnosis SNOMED-CT Code Diagnosis ICD10 Code Diagnosis Note [id number] MARIA G VALADEZ MD Main - [facility] [address] [place] [phone] 06/15/2023 10:44:14 06/15/2023 22:22:49 Infection of upper respiratory tract caused by SARS-CoV-2 1045920863 100426 U07.1 Evaluation in the field was performed by my sleep technologist colleague, as noted above, I provided real-time [...] Section Related Observation LastModified by Organization Lissy ls LastModified Time None Recorded Concern Status LastModified by Organization Details LastModified Time None Recorded Advance Directives Directive None Recorded Payers Insurance Date Sequence Insurance Name Policy Number Policy Ansari Covered Member ID Ansari Member ID Guarantor Name 09/01/2023 1 [facility] - DOS ON OR AFTER 2022 - DUAL ELIGIBLE - PRISON OPTIONS AND ONE CARE (MEDICARE REPLACEMENT/ADV ANTAGE - HMO) Hal Archer [id number] Hal Archer Notes Date Note Type Note [...] .................. .................. .................. .................. .................. .................. ............... [employer] Note From Moris Mercado: Pt tested positive for Covid yesterday had had symptoms since Monday. Family wanted him evaluated. Pt co cough that hurt but no production of mucus. Denies fever vomiting or nausea. CP or SOB. Baseline vitals assessed. Lungs clear. A febrile. C contacted and guaifenesin RX. Pt education on signs indicating the ER. 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 .................. .................. .................. .................. .................. .................. ............... Disposition: Elida VALADEZ MD [address] [facility],[address], [place], [address], [place] - NNAMDI SERRATO 06/15/2023 12:15:55
[2024-12-06 09:08] LABS: Anion Gap 10 (12-20); Blood Urea Nitrogen 19 mg/dL (9-16); Calcium 9.1 mg/dL (8.4-10.2); Carbon Dioxide 28 mmol/L (22-29); Chloride 104 mmol/L (96-108); Estimated Glomerular Filt Rate > 60; Potassium 4.3 mmol/L (3.3-5.1); Sodium 138 mmol/L (135-145)
== END 2024-12-06 07:56 | disposition home or self-care (01) ==
LOC: HO.LAB 07:55
PROVIDERS: PCP Internal Medicine Geriatric Medicine; Visit Provider Internal Medicine Geriatric Medicine
DX: E11.9 Type 2 diabetes mellitus without complications (principal); I10 Essential (primary) hypertension
CPT/HCPCS: 36415; 80048

== ENCOUNTER 2025-03-17 07:14 | Outpatient (REF) | payer OTHER, SELFPAY ==
--- OUTSIDE RECORDS SUMMARY | 2025-03-17 07:17 | XMS_ITS | Clinical Summary ---
Author Organization [email or web address] Address [address] [place] [address] [address] [place] [address] Care Team Providers Care Rn Camp Name Role Phone Name, Yovani MARTINEZ Primary Care Provider [phone] Terri Sr PharmD Unavailable [phone] Allergies Active Allergy Reactions Criticality Noted Date Comments Penicillin G 04/07/2016 Penicillins Unknown 09/04/2024 Tramadol 04/07/2016 Medications omeprazole (PriLOSEC) [address] capsule TAKE 1 CAPSULE BY MOUTH EVERY DAY 90 capsule 1 3 Active Additional Information Patient taking differently: 20 mg Oral Daily PRN, heartburn, TAKE 1 CAPSULE BY MOUTH EVERY DAY, Reported on 01/29/2025 FREESTYLE LITE test strip Use to test blood sugar 1 times daily 100 each 12 5 09/18/19 26 Active Alcohol Swabs 70 % pads Use to test blood sugar 1 times daily 100 each 5 Active Blood Glucose Monitoring Suppl (FreeStyle [place] Lite) w/Device kit Use to test blood sugar 1 times daily 1 kit 5 Active losartan (Cozaar) 25 MG tabletIndication s:New onset type 2 diabetes mellitus (HCC),Hypertensi on, unspecified type Take 1 tablet (25 mg) by mouth Once per day. 90 tablet 1 5 Active FreeStyle lancets USE TO TEST BLOOD SUGAR 1 TIMES DAILY 100 each 3 5 Active empagliflozin-me tFORMIN ER (Synjardy XR) 10-1000 MG 24 hr tablet Take 1 tablet by mouth with breakfast. 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, without long-term current use of insulin 05/15/2012 Encounters Date Type Department Care Team Description 03/14/[address] [facility] [address] [place] [phone] Damion Acuna [place] dec recalls 01/29/2025 9:30 AM EDT Office Visit [facility] [address] [place] [address] Name, MD Yovani Controlled type 2 diabetes mellitus with microalbuminuria, without long-term current use of insulin ([facility]) (Primary Dx); Hypertension, unspecified type 01/29/2025 Travel 01/28/[address] [facility] [address] [place] [address] Damion Acuna MA chart prep 01/08/2025 Travel from Last 3 Months Immunizations Immunization Administration [...] Sign Reading Time Taken Comments Blood Pressure 134/76 01/29/2025 9:09 AM EDT Pulse 71 01/29/2025 9:09 AM EDT Temperature 36.3 C (97.4 F) 01/29/2025 9:09 AM EDT Respiratory Rate 12 01/29/2025 9:09 AM EDT Oxygen Saturation 98% 01/29/2025 9:09 AM EDT Inhaled Oxygen Concentration - - Weight 71.8 kg (158 lb 6.4 oz) 01/29/2025 9:09 A M EDT Height 167.6 cm (5' 6 ) 01/29/2025 9:09 AM EDT Body Mass Index 25.57 01/29/2025 9:09 AM EDT Plan of Treatment Upcoming Encounters Date Type Department Care Team (Late st Contact Info) Description 04/07/2025 9:00 AM EST Medication Management [facility] [address] [place] [phone] Terri Sr, PharmD [address], [place] [phone] 06/04/2025 9:45 AM EST Office Visit [facility] [address] [place] [phone] Name, MD Yovani [address] [place] [address] [phone] Health Maintenance Due Date Last Done Comments Diabetes: Foot Exam 1950 Zoster Vaccines (1 of 2) 1990 RSV Patients and Patients Aged 60 years or older (1 - 1-dose 75+ series) 12/31/2015 DTaP/Tdap/Td Vaccines (1 - Tdap) 05/12/2017 05/11/2017, 07/12/2002 Pneumococcal Vaccine: 50+ Years (3 of 3 - PCV20 or PCV21) 05/12/2019 05/12/2014, 12/17/2002 Lipid Panel 09/10/2024 09/11/2023, 05/31, 12/23/2021 COVID-19 Vaccine ( season) 2025 10/05/2021, 08/25/2020, 07/28/2020 Influenza Vaccine (#1) 2025 5, 05/12/2014, 03/15/2013, Additional history exists Alcohol/Substance Use Screening 04/03/2025 04/03/2024 Diabetes: Hemoglobin A1C 04/10/2025 025, 09/16/2024, 03/27/2024, Additional history exists Depression Screening 09/04/2025 09/04/2024, 09/05/19 25 SDOH Screening 09/04/2025 09/04/2024 Tobacco Screening 01/29/2026 01/29/2025 Eye Exam 10/10/2026 10/10/2024, 10/10/2024 HIB Vaccines [...] Procedure Name Priority Date/Time Associated Diagnosis Comments POCT GLUCOSE Routine 01/29/2025 9:10 AM EDT Controlled type 2 diabetes mellitus with microalbuminuria, without long-term current use of insulin (CMS/[facility]ER[facility]) POCT GLYCATED HEMOGLOBIN, TOTAL Routine 01/08/2025 11:58 AM EDT New onset type 2 diabetes mellitus (CMS/HCC) LIPID PANEL, STANDARD Routine 09/11/2023 7:30 AM EDT Hypertension, unspecified type Impaired glucose tolerance from Last 3 Months or Most Recently Relevant to Health Maintenance Results * POCT Glucose (01/29/2025 9:10 AM EDT) Glucose Blood, POC 123 60 - 200 mg/dL QC Media Lot # [id number] Lot# Expiration Date Blood Capillary blood specimen / Unknown 01/29/2025 9:10 AM EDT us Yovani Name POINT OF CARE TEST ENTER/EDIT OR DERABLES Final Result * (ABNORMAL) POCT HGB A1C (01/08/2025 11:58 AM EDT) Hemoglobin A1C 7.2(A) 4.0 - 5.7 % Blood 01/08/2025 11:5 8 AM EDT us Yovani Smith MD POINT OF CARE TEST ENTER/EDIT OR DERABLES Final Result * (ABNORMAL) Lipid Panel, Standard (09/11/2023 7:30 AM EDT) Triglycerides 68 <150 mg/dL [facility] Comment:Desirable Triglyceri de: less than 150 mg/dLBorderline High Triglyceride 150-199 mg/dLHigh Triglyceride: 200-499 mg/dLVery High Triglyceride: greater than or equal to 5OO mg/dL Cholesterol 174 <200 mg/dL [facility] Comment:Desirable Cholestero l: less than 200 mg/dLBorderline High Cholesterol: 200-239 mg/dLHigh Cholesterol: greater than 239 mg/dL LDL Cholesterol Calculated 121(H) <100 mg/dL [facility] Comment:Desirable LDL: less than 100 mg/dLNear Optimal/Above Optimal LDL: 110- 129 mg/dLBorderline High LDL: 130-159 mg/dLHigh LDL: 160-189 mg/dLVery High LDL: greater than or equal to 190 mg/dL HDL Cholesterol 40(L) >40 mg/dL [facility] Comment:Desirable HDL: great er than 40 mg/dL Note: This HDL assay may give artificially low results in patients with liver disease. Blood Venous blood specimen / Unknown 09/11/2023 7:30 AM EDT 09/11/2023 7:37 AM EDT us Yovani Smith MD LAB BLOOD ORDERABLES Final Resul t [facility] [address] [place] [phone] from Last 3 Months or Most Recently Relevant to Health Maintenance Insurance [place] [id number] Advance Directives Documents on File Type Date Recorded Patient Welfare Supervisor Expl anation Power of Fur Blower Operator 08/10/2023 Power of A ttorney Care Teams Rn Camp Relationship Specialty Start Date End Date Name, MD Yovnai [address] [place] [address] PCP - General Family Medicine 12/23/21 Terri Sr PharmD [address] [place] [address] Pharmacist Internal Medicine 10/18/24
--- OUTSIDE RECORDS SUMMARY | 2025-03-17 07:17 | XMS_ITS | Data Portability ---
Author Organization [place] - [employer], [place] [employer] [facility] Address [address] [place] [phone] Assessment No assessment recorded. Plan of Treatment Reminders Order Date Submit Date Provider Last Modified By Organization Details Last Modified Time Details Appointments None recorded. Lab None recorded. Referral None recorded. Procedures None recorded. Surgeries None recorded. Imaging None recorded. Medication Orders dextrometho rphan 10 mg-guaifene sin 187 mg/5 mL oral liquid 2023 024 [facility]/Pharmacy #[id number], [address] [place], [address], 4 10:48:20 Patient TargetsNo targets recorded. Patient InstructionsNo instructions recorded. Reason for Referral None Reported. Medical Equipment None Reported. Allergies Allergen ID Allergen Name Allergen Category Reaction Reaction Severity Criticality Documentation Date Start Date Code Code System Note Provider Name and Address Organization Details Recorded Time 7800 Product containin g penicilli n (product) medicatio n Not available Not available Not available 03/26/2024 17330 8001 SNOMED Not Available [facility] - production [...] [degF] 16 /min 98 % 98 % 95213.9 04 g 78 /min 144/74 mm[Hg] Not Available [facility] - production 4 10:44:17 Social History None recorded. Functional Status None recorded. Mental Status None recorded. Family History Nothing Reported. Medical History No medical history recorded. Past Encounters Encounter ID Performer Location Encounter Start Date Encounter Closed Date Diagnosis/Indication Diagnosis SNOMED-CT Code Diagnosis ICD10 Code Diagnosis IMO Codes Diagnosis Note [id number] MARIA G VALADEZ MD Main - [facility] [address] [place] [phone] 06/15/2023 10:44:14 06/15/2023 22:22:49 Infection of upper respiratory tract caused by SARS-CoV-2 [id number] 257143 U07.1 Evaluation in the field was performed by my jet aircraft servicer colleague, as noted above, I provided real-time [...] Concerns Section Related Observation LastModified by Organization Detai ls LastModified Time None Recorded Concern Status LastModified by Organization Details LastModified Time None Recorded Advance Directives Directive None Recorded Payers Insurance Date Sequence Insurance Name Policy Number Policy Ansari Covered Member ID Ansari Member ID Guarantor Name 03/05/2025 1 [facility] - DOS ON OR AFTER 2022 - DUAL ELIGIBLE - LONG TERM OPTIONS AND ONE CARE (MEDICARE REPLACEMENT/ADV ANTAGE - HMO) aHl Archer [id number] Hal Archer Notes Date Note Type Note Provider Name and Address Organization Details Recorded Time 06/15/2023 text/html ROS as noted in the HPI HPI: Elderly man at home with who [...] .................. .................. .................. .................. .................. .................. ............... 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 Family wanted him evaluated. Pt co cough that hurt but no production of mucus. Denies fever vomiting or nausea. CP or SOB. Baseline vitals assessed. Lungs clear. A febrile. [facility] contacted and guaifenesin RX. Pt education on signs indicating the ER. 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 .................. .................. .................. .................. .................. .................. ............... Disposition: Elida VALADEZ MD [address] [facility],[address], [place], [phone], [place] [employer] 06/15/2023 12:15:55
--- OUTSIDE RECORDS SUMMARY | 2025-03-17 07:17 | XMS_ITS | Encounter Summary ---
Author Organization [employer] Address [address] [facility] 7[address] [place] [address] Care Team Providers Care Dental Insurance Biller Name Role Phone Name, Yovani MARTINEZ Primary Care Provider [phone] Terri Sr PharmD Unavailable [phone] Reason for Visit * Reason Onset Date Comments dec recalls 03/14/2025 Encounter Details Date Type Department Care Team ([facility] st Contact Info) Description 03/14/2025 Telephone [facility] [address] [place], [place] [phone] Damion Acuna [place] dec recalls Social History Tobacco Use Types Packs/Day Years Used Date Smoking Tobacco: Never Passive Smoke Exposure: Never Smokeless Tobacco: Never Alcohol Use Standard Drinks/Week Comments Never 0 [...] Orientation Straight 03/28/2022 10 :14 AM EDT documented as of this encounter Miscellaneous Notes * Telephone Encounter - Damion Acuna [place] - 03/14/2025 2:45 PM EDT Telephone call to patient to schedule the following recall: Visit type: Follow up Appointment notes: HTN and DM Patient agree to appointment on 06/04/25 at 9;45 am with Name. documented in this encounter Plan of Treatment Upcoming Encounters Date Type Department Care Team (Late st Contact Info) Description 04/07/2025 9:00 AM EST Medication Management [facility] [address] [place] [phone] Terri Sr, PharmD [address] [place] [phone] 06/04/2025 9:45 AM EST Office Visit [facility] [address] [place] [phone] Name, MD Yovani [address] [place] [phone] documented as of this encounter Visit Diagnoses Not on filedocumented in this encounter Additional Health Concerns Assessment Noted Time PHQ-9 Depression Total Score: 0 09/05/19 25 9:36 AM EDT documented as of this encounter Care Teams Dental Insurance Biller Relationship Specialty Start Date End Date Name, MD Yovani [address] [place] [address] PCP - General Family Medicine 12/23/21 Terri Sr, Erin [address] [place] [address] Pharmacist Internal Medicine 10/18/24 documented as of this encounter
[2025-03-17 08:19] LABS: Anion Gap 13 (12-20); Carbon Dioxide 27 mmol/L (22-29); Chloride 104 mmol/L (96-108); Potassium 4.6 mmol/L (3.3-5.1); Sodium 139 mmol/L (135-145)
[2025-03-17 08:20] LABS: Blood Urea Nitrogen 19 mg/dL (9-16); Calcium 9.3 mg/dL (8.4-10.2); Estimated Glomerular Filt Rate > 60
[2025-03-17 08:42] LABS: PSA,Total (Free>4and<10) 11.86 ng/mL (0.00-4.00)
[2025-03-17 08:42] LABS: Microalbum/Creatinine Ratio Ur 100.5 ug/mg cr (<30)
== END 2025-03-17 07:15 | disposition home or self-care (01) ==
LOC: HO.LAB 07:14
PROVIDERS: Absent Provider Urology; PCP Internal Medicine Geriatric Medicine; Visit Provider Internal Medicine Geriatric Medicine
DX: R97.20 Elevated prostate specific antigen [PSA] (principal); E11.29 Type 2 diabetes mellitus with other diabetic kidney complication; R80.9 Proteinuria, unspecified; I10 Essential (primary) hypertension; Z12.5 Encounter for screening for malignant neoplasm of prostate
CPT/HCPCS: 36415; 80048; 82043; 82570; 84153

== ENCOUNTER 2025-04-04 08:14 | Outpatient (AMB) | payer OTHER, SELFPAY ==
--- NOTE | 2025-04-04 08:17 | MHC.OFFVIS ---
Intake Visit Reasons: 6M PSA/PVR Follow Up Intake Note: Patient is Present for Follow Up PSA/PVR Urology Medication: None Antibiotic Allergies:Cipro, Penicillin Blood Thinners:None PVR: [employer] Rolls Required: Yes [employer] Rolls Language: Frisian Software Quality Tester: Software Quality Tester Present Accompanied by: Spouse Allergies ciprofloxacin (CIPROFLOXACIN) Allergy (Intermediate, Verified 04/04/25 09:00) ITCHING Penicillins (PENICILLINS) Allergy (Unknown, Verified 04/04/25 09:00) UNKNOWN From PERCOCET Adverse Reaction (Intermediate, Uncoded 04/04/25 09:00) AGITATION/VOMITING HPI Comments Details: Hal is a pleasant male. He is a patient of Dr Dow. He is seen for the following urologic conditions. - Bladder stone - lower urinary tract symptoms Six-month follow-up Translation by PSA continuing upward jump 03/22 12 Check PSA in 6 months to ensure stability At this point does not want to be on finasteride Six-month follow-up PSA prior Start dutasteride Lower Urinary Tract Symptoms:? Prior prostate procedures Prior elevated and variable PSA Current visit is for?further evaluation of, lower urinary tract symptoms, predominate obstructive symptoms.? Current treatment includes?medication, 5-AR.? Prior treatments include?2009 , TURP ?03/13 laser procedure for bladder stones - BPH tissue ?06/15 UTI ?11/13 Bladder stone removed.? Prostate Symptom Score?06/16 , Mild (0-8), Bother 2.? Symptoms include?incomplete emptying, weak stream, nocturia (>2), and are improving ?06/16 , incomplete emptying, nocturia (>2), and are stable.? Results from testing include? cystoscopy ? 09/13 TURP defect from procedure 2009, bladder stones recurrent ? renal/bladder us ? 06/15 6 mm left kidney stone. Asymptomatic. 90 mg prostate per management. PVR 125. 06/16 Bilateral small renal stones. Enlarged prosatte capsule ? Prior Prostate Score?moderate.? PSA?07/15 - 6.2 free 30% ?01/12 6.6 30%, 06/16 3.9, 12/14 4.7, 07/18 PSA 7.4,?01/15 4.8, 09/17 4.2 35%, 03/19 4.5 40%, 03/20 6.3 F22%, 03/21 6.7 31%, 09/20 8.2 24% ? Prostate volume?30-50gm.? Testing at next visit will include?Prostate Symptom Score, bladder scan.? PFSH Medical History AAA (abdominal aortic aneurysm) without rupture Elevated prostate specific antigen [PSA] Surgical History No pertinent past surgical history Family History Father No problems noted. Mother No problems noted. Social History Patient Tobacco Use Status: Never used Tobacco Assessment & Plan Assessment & Plan (1) BPH w urinary obs/LUTS: Code(s): N40.1 - Benign prostatic hyperplasia with lower urinary tract symptoms; N13.8 - Other obstructive and reflux uropathy Category: Medical (2) Elevated prostate specific antigen [PSA]: Code(s): R97.20 - Elevated prostate specific antigen [PSA] Category: Medical Plan Start dutasteride Six-month follow-up PSA Orders: Orders AMB Post Void Residual by ultrasound Today N13.8 - Other obstructive and reflux uropathy, N40.1 - Benign prostatic hyperplasia with lower urinary tract symptoms PSA,Total (Free>4and<10) 6 Months N13.8 - Other obstructive and reflux uropathy, N40.1 - Benign prostatic hyperplasia with lower urinary tract symptoms Medications: New dutasteride 0.5 mg PO DAILY 90 caps 1RF 90 days N13.8 - Other obstructive and reflux uropathy, N40.1 - Benign prostatic hyperplasia with lower urinary tract symptoms Patient Instructions: This note is constructed using voice recognition software. While every effort has been made to ensure accuracy water regulator and valve repairer errors may have been included. Imaging studies, laboratory and physical exam results were discussed and reviewed in detail. No major barriers to patient understanding were identified. An opportunity to ask questions regarding the treatment plan was provided. All questions were answered. The patient expressed understanding and agreement with the above treatment plan. The patient is aware they should contact our office by phone for worsening of their current condition or the appearance of new urologic symptoms. Compliance is encouraged with any medications and followup testing that is ordered. It is a privilege to participate in the urologic care of your patient. If you have any questions or concerns regarding treatment for the above conditions, or other urologic issues, please do not hesitate to contact me. The office telephone contact is [phone]. Sincerely, Dr Blaze Marie MD, LADI [facility] - Urology Compassionate Specialist Care for the Genitourinary System Coding Level of Care Code Est Pt Level 4 (79960) Complex EM visit Add On G2211 Diagnoses BPH w urinary obs/LUTS N40.1; N13.8 Elevated prostate specific antigen [PSA] R97.20
--- OUTSIDE RECORDS SUMMARY | 2025-04-04 08:23 | XMS_ITS | Clinical Summary ---
Author Organization [employer] Address [address] [place] [address] [address] [place] [address] Care Team Providers Care Copier Technician Name Role Phone Name, Yovani MARTINEZ Primary Care Provider [phone] Terri Sr PharmD Unavailable [phone] Allergies Active Allergy Reactions Criticality Noted [...] 5 Active Blood Glucose Monitoring Suppl (FreeStyle [place] Lite) w/Device kit Use to test blood [...] Encounters Date Type Department Care Team Description 03/17/2025 Orders Only GENERIC EXTERNAL DATA DEPARTMENT Provider, Generic External Data 03/14/[address] [address] Damion Acuna [place] dec recalls 01/29/2025 9:30 AM EDT Office Visit [facility] [address] [place] [phone] Name, MD Yovani Controlled type 2 diabetes mellitus with microalbuminuria, without long-term current use of insulin ([facility]) (Primary Dx); Hypertension, unspecified type 01/29/2025 Travel 01/28/2025 Telephone [facility] [address] [place] [address] Damion Acuna [place] chart prep 01/08/2025 Travel [...] Description 04/07/2025 9:00 AM EST Medication Management [facility] [address] [place] [phone] Terri Sr, UrielD [address], [place] [phone] 06/04/2025 9:45 AM EST Office Visit [facility] [address] [place] [address] [phone] Name, MD Yovani [address], [place] [phone] Health Maintenance Due Date Last Done Comments Diabetes: Foot Exam 1950 Zoster Vaccines (1 of 2) 1990 RSV Patients and Patients Aged 60 years or older (1 - 1-dose 75+ series) 12/31/2015 DTaP/Tdap/Td Vaccines (1 - Tdap) 05/12/2017 05/11/2017, 07/12/2002 Pneumococcal Vaccine: 50+ Years (3 of 3 - PCV20 or PCV21) 05/12/2019 05/12/2014, 12/17/2002 Lipid Panel 09/10/2024 09/11/2023, 05/31, 12/23/2021 COVID-19 Vaccine ( - season) 2025 10/05/2021, 08/25/2020, 07/28/2020 Influenza Vaccine (#1) 2025 5, 05/12/2014, 03/15/2013, Additional history exists Alcohol/Substance Use Screening 04/03/2025 04/03/2024 Diabetes: Hemoglobin A1C 04/10/20252 025, 09/16/2024, 03/27/2024, Additional history exists Depression [...] Name Priority Date/Time Associated Diagnosis Comments PSA, TOTAL WITH REFLEX TO PSA, FREE Routine 03/17/2025 7:23 AM EDT BASIC METABOLIC PANEL Routine 03/17/2025 7:23 AM EDT Controlled type 2 diabetes mellitus with microalbuminuria, without long-term current use of insulin (HCC) Hypertension, unspecified type ALBUMIN, RANDOM URINE W/CREATININE Routine 03/17/2025 7:19 AM EDT Controlled type 2 diabetes mellitus with microalbuminuria, without long-term current use of insulin (HCC) Hypertension, unspecified type POCT GLUCOSE Routine 01/29/2025 9:10 AM EDT Controlled type 2 diabetes mellitus with microalbuminuria, without long-term current use of insulin (CMS/HCC) POCT GLYCATED HEMOGLOBIN, TOTAL Routine 01/08/2025 11:58 AM EDT New onset type 2 diabetes mellitus (CMS/HCC) LIPID PANEL, STANDARD Routine 09/11/2023 7:30 AM EDT Hypertension, unspecified type Impaired glucose tolerance from Last 3 Months or Most Recently Relevant to Health Maintenance Results * (ABNORMAL) PSA, Total With Reflex to PSA, Free (03/17/2025 7:23 AM EDT) Pathologist [facility] [place] PSA,Total (Free>4and<10) 11.86(H ) 0.00 - 4.00 ng/mL [facility] Comment:A Free PSA was not p erformed: The percentage of Free PSA can be used to enhance the differentiation of prostate cancer from benign prostatic disease in subjects whose PSA levels are between 4.0 and 10.0 ng/mL. For subjects whose PSA levels are below 4.0 or above 10.0 ng/mL, the risk of prostate cancer is determined on the basis of the PSA alone. Therefore the % Free PSA is recommended only for those subjects whose PSA levels are between 4.0 and 10.0 ng/mL.PSA methodology: [employer] i ChemiluminescentMicroparticle Immunoassay (CMIA) 03/17/2025 7:23 AM EDT 03/17/2025 7:23 AM EDT us Generic External Data Provider LAB BLOOD ORDERAB LES Final Result [facility] [address] [place] [phone] * (ABNORMAL) Basic Metabolic Panel (03/17/2025 7:23 AM EDT) Pathologist [facility] [place] Sodium 139 135 - 145 mmol/L [facility] Potassium 4.6 3.3 - 5.1 mmol/L [facility] Chloride 104 96 - 108 mmol/L [facility] Carbon Dioxide 27 22 - 29 mmol/L [facility] Anion Gap 13 12 - 20 [facility] Urea Nitrogen (BUN) 19(H) 9 - 16 mg/dL [facility] Creatinine, Serum 1.05 0.5 - 1.4 mg/dL [facility] Estimated Glomerular Filt Rate >60 [facility] Comment:Chronic Kidney Disea se: Estimated GFR < 60 mL/min/1.54w2Bhzzor Kidney Disease: Estimated GFR < 15 mL/min/1.73m2 Glucose 121(H) 60 - 115 mg/dL [facility] Calcium 9.3 8.4 - 10.2 mg/dL [facility] Blood Venous blood specimen / Unknown 03/17/2025 7:23 AM EDT 03/17/2025 7:23 AM EDT us Yovani Smith MD LAB BLOOD ORDERABLES Final Resul t Performing Organization Address [facility] de Phone Number [facility] [address] [place] [phone] * (ABNORMAL) Albumin, Random Urine W/Creatinine (03/17/2025 7:19 AM EDT) Creatinine, Urine 132.21 mg/dL [facility] Microalbumin Urine 133.0 mg/L [facility] Microalbum Creatinine Ratio Ur 100.5(H) <30 ug/mg cr [facility] Comment:Albumin/Creatinine R atio Reference Ranges: Normal: < 30 ug/mg creatinine Microalbuminuria: 30 - 300 ug/mg creatinineClinical Albuminuria: > 300 ug/mg creatinine Urine (Urine, Random) 03/17/2025 7:19 AM EDT 03/17/2025 7:49 AM EDT Result Robles Smith MD LAB URINE ORDERABLES Final Resul t Performing Organization Address [facility] Co de Phone Number [facility] [address] [place] [phone] * POCT Glucose (01/29/2025 9:10 AM EDT) Glucose Blood, POC 123 60 - 200 mg/dL QC Media Lot # [id number] Lot# Expiration Date Blood Capillary blood specimen / Unknown 01/29/2025 9:10 AM EDT Result Robles Smith MD POINT OF CARE TEST ENTER/EDIT OR DERABLES Final Result * (ABNORMAL) POCT HGB A1C (01/08/2025 11:58 AM EDT) Hemoglobin A1C 7.2(A) 4.0 - 5.7 % Blood 01/08/2025 11:5 8 AM EDT us Yovani Smith MD POINT OF CARE TEST ENTER/EDIT OR DERABLES Final Result * (ABNORMAL) Lipid Panel, Standard (09/11/2023 7:30 AM EDT) Triglycerides 68 <150 mg/dL [facility] Comment:Desirable Triglyceri de: less than 150 mg/dLBorderline High Triglyceride 150-199 mg/dLHigh Triglyceride: 200-499 mg/dLVery High Triglyceride: greater than or equal to 5OO mg/dL Cholesterol 174 <200 mg/dL [facility] Comment:Desirable Cholestero l: less than 200 mg/dLBorderline High Cholesterol: 200-239 mg/dLHigh Cholesterol: greater than 239 mg/dL LDL Cholesterol Calculated 121(H) <100 mg/dL [facility] Comment:Desirable LDL: less than 100 mg/dLNear Optimal/Above Optimal LDL: 110- 129 mg/dLBorderline High LDL: 130-159 mg/dLHigh LDL: 160-189 mg/dLVery High LDL: greater than or equal to 190 mg/dL HDL Cholesterol 40(L) >40 mg/dL [facility] Comment:Desirable HDL: great er than 40 mg/dL Note: This HDL assay may give artificially low results in patients with liver disease. Blood Venous blood specimen / Unknown 09/11/2023 7:30 AM EDT 09/11/2023 7:37 AM EDT us Yovani Smith MD LAB BLOOD ORDERABLES Final Resul t [facility] [address] [place] [phone] from Last 3 Months or Most Recently Relevant to Health Maintenance Insurance [place] [id number] * Guarantor: Hal Archer Account Type Relation to Patient Date of Phone Billing Address Personal/Family Self [address] Advance Directives Documents on File Type Date Recorded Patient Pillowcase Folder Expl anation Power of Aviation Support Equipment Repairer 08/10/2023 Power of A ttorney Care Teams Copier Technician Relationship Specialty Start Date End Date Name, MD Yovani [address] [place] [address] PCP - General Family Medicine 12/23/21 Terri Sr PharmD [address], [place] [phone] Pharmacist Internal Medicine 10/18/24
--- OUTSIDE RECORDS SUMMARY | 2025-04-04 08:23 | XMS_ITS | Data Portability ---
Author Organization [place] - [email or web address] [facility], [employer] [facility] Address [address] [place] [phone] Assessment No assessment recorded. Plan of Treatment Reminders Order Date Submit Date Provider Last Modified By Organization Details Last Modified Time Details Appointments None recorded. Lab None recorded. Referral None recorded. Procedures None recorded. Surgeries None recorded. Imaging None recorded. Medication Orders dextrometho rphan 10 mg-guaifene sin 187 mg/5 mL oral liquid 2023 024 [id number], [address] [place], [address], 4 10:48:20 Patient TargetsNo targets recorded. Patient InstructionsNo instructions recorded. Reason for Referral None Reported. Medical Equipment None Reported. Allergies Allergen ID Allergen Name Allergen Category Reaction Reaction Severity Criticality Documentation Date Start Date Code Code System Note Provider Name and Address Organization Details Recorded Time 7800 Product containin g penicilli n (product) medicatio n Not available Not available Not available 03/26/2024 42307 [id number] SNOMED Not Available [facility] - production [...] [degF] 16 /min 98 % 98 % 22593.9 04 g 78 /min 144/74 mm[Hg] Not Available [facility] - production 4 10:44:17 Social History None recorded. Functional Status None recorded. Mental Status None recorded. Family History Nothing Reported. Medical History No medical history recorded. Past Encounters Encounter ID Performer Location Encounter Start Date Encounter Closed Date Diagnosis/Indication Diagnosis SNOMED-CT Code Diagnosis ICD10 Code Diagnosis IMO Codes Diagnosis Note [id number] MARIA G VALADEZ MD Main - [facility] [address] [place] [phone] 06/15/2023 10:44:14 06/15/2023 22:22:49 Infection of upper respiratory tract caused by SARS-CoV-2 [id number] 239826 U07.1 Evaluation in the field was performed by my desizing machine operator colleague, as noted above, I provided real-time [...] Ansari Member ID Guarantor Name 03/05/2025 1 [facility] - DOS ON OR AFTER 2022 - DUAL ELIGIBLE - [facility] OPTIONS AND ONE [employer] (MEDICARE REPLACEMENT/ADV ANTAGE - HMO) Hal Archer [id number] Hal Archer Notes Date Note Type Note [...] .................. .................. .................. .................. .................. .................. ............... 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 Family wanted him evaluated. Pt co cough that hurt but no production of mucus. Denies fever vomiting or nausea. CP or SOB. Baseline vitals assessed. Lungs clear. A febrile. [place] contacted and guaifenesin RX. Pt education on signs indicating the ER. 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 .................. .................. .................. .................. .................. .................. ............... Disposition: Elida VALADEZ MD [address] [facility], [place], [phone], [email or web address] 06/15/2023 12:15:55
== END 2025-04-04 09:48 | disposition home or self-care (01) ==
LOC: HO.HUSH 08:14
PROVIDERS: PCP Internal Medicine Geriatric Medicine; Visit Provider Urology
DX: N40.1 Benign prostatic hyperplasia with lower urinary tract symptoms (principal); N13.8 Other obstructive and reflux uropathy; R97.20 Elevated prostate specific antigen [PSA]
CPT/HCPCS: 99214; G2211

== ENCOUNTER → 2025-04-04 08:14 | Outpatient (BNVA) | payer OTHER, SELFPAY | PROVIDERS: PCP Internal Medicine Geriatric Medicine; Visit Provider Urology | DX: N40.1 Benign prostatic hyperplasia with lower urinary tract symptoms (principal); N13.8 Other obstructive and reflux uropathy; N21.0 Calculus in bladder; R97.20 Elevated prostate specific antigen [PSA] | CPT/HCPCS: 99212 ==